=== PATIENT | male | born 1945 | race Caucasian/White ===

== ENCOUNTER → 2016-07-24 | Outpatient (CLI) | payer MEDICARE, OTHER ==
[~2016-07-24] MED LIST: AMLO5TAB4 PO; ARIP5TAB7 PO; BACTDS PO; BETH25TA PO; FINA5TAB4 PO; SERT50TA6 PO
--- NOTE | 2016-07-24 18:21 | RADRPT ---
PROCEDURE: US left lower extremity veins. CLINICAL INDICATION: Left leg pain and swelling. TECHNIQUE: Multiple longitudinal and transverse images of the left lower extremity veins were obta ined with vega scale and color Doppler imaging. The common femoral vein, femoral vein, and popliteal vein were evaluated. 2D grayscale measurements with compression sonography, pulsed Doppler, color D oppler, and pulsed Doppler with augmentation. COMPARISON: No prior studies are available for comparison. FINDINGS: The left common femoral, femoral and popliteal veins are normally compressible throughout. Color fl ow demonstrates normal filling of the vessels. Normal waveforms are visualized and there is normal response to augmentation. IMPRESSION: 1. No evidence of deep vein thrombosis involving the left lower extremity. RPTAT: QQ .Alex Howell MD, MD Date Time Electronically viewed and signed by .Alex Howell MD, on 07/24/2016 18:21 .R/
== END | disposition home or self-care (01) ==
LOC: VAS 16:34
DX: I82.4Z2 Acute embolism and thrombosis of unspecified deep veins of left distal lower extremity (principal)
CPT/HCPCS: 93971

== ENCOUNTER 2016-07-29 20:34 | Inpatient (IN) | payer MEDICARE, OTHER ==
[~2016-07-29] VITALS: Ht 182.9 cm; Wt 88.5 kg
[~2016-07-29 20:34] MED LIST changes: -BACTDS PO
[2016-07-29] MEDS ORDERED: VANCOMYCIN 1 GM (PMX) 250 ML IVPB STA (21:25)
[2016-07-29] MEDS ORDERED: BACTDS PO (21:50)
[2016-07-29 22:07] LABS: ADD SCAN DIFF NO
[2016-07-29 22:13] LABS: BASOPHILS % 0.6 % (0.0-2.0); EOSINOPHILS # 0.2 10^3/ul (0.0-0.5); EOSINOPHILS % 2.5 % (0.0-7.0); HEMOGLOBIN 11.6 g/dl (14.0-18.0); LYMPHOCYTES # 1.6 10^3/ul (0.8-2.9); LYMPHOCYTES % 23.3 % (15.0-51.0); MEAN CORPUSCULAR HEMOGLOBIN 30.5 pg (29.0-33.0); MEAN CORPUSCULAR HGB CONC 31.4 g/dl (32.0-37.0); MEAN CORPUSCULAR VOLUME 97.4 fl (82.0-101.0); MEAN PLATELET VOLUME 9.2 fl (7.4-10.4); MONOCYTE # 0.5 10^3/ul (0.3-0.9); MONOCYTES % 7.2 % (0.0-11.0); NEUTROPHIL # 4.5 10^3/ul (1.6-7.5); NEUTROPHILS % 66.1 % (39.0-77.0); PLATELET COUNT 298 10^3/UL (140-415); RED CELL DISTRIBUTION WIDTH 12.1 % (11.5-14.5); WHITE BLOOD COUNT 6.8 10^3/ul (4.8-10.8)
[2016-07-29 22:27] LABS: ALBUMIN 4.3 g/dl (3.3-4.9); ALBUMIN/GLOBULIN RATIO 0.79; CALCIUM 8.7 mg/dl (8.4-10.2); CREATININE 2.85 mg/dl (0.61-1.24); POTASSIUM 3.9 mmol/L (3.5-5.1); TOTAL PROTEIN 9.7 g/dl (6.1-8.1)
--- NOTE | 2016-07-29 22:33 | ERA ---
ER Documentation Chief Complaint Date/Time DATE: 07/29/16 TIME: 22:27 Chief Complaint old blister wound on L leg requests wound dressing wound culture done+mrsa HPI 70-year-old male with a history of hypertension and Asperger's syndrome presenting with left lower extremity infection. He was seen at an urgent care about 3 days ago and had an I&D of 2 abscesses on his left lower extremity. He was placed on antibiotics but does not know the name. His cultures returned as MRSA. He feels like he has not been getting significantly better on the antibiotics. He denies any associated pain or difficulty walking. No fevers, chills, chest pain, shortness of breath, nausea, vomiting, diarrhea. No focal weakness or numbness ROS All systems reviewed and are negative except as per history of present illness. Medications Home Meds Reported Medications Sulfamethoxazole-Trimethoprim* (Bactrim* DS) 800-160 Mg Tab, 1 TAB PO BID, #20 TAB 07/29/16 Amlodipine Besylate* (Norvasc*) 5 Mg Tablet, 5 MG PO DAILY, TAB 12/01/15 Bethanechol Chloride* (Bethanechol Chloride*) 25 Mg Tablet, 25 MG PO TID, TAB 11/20/15 Finasteride* (Finasteride*) 5 Mg Tablet, 5 MG PO QHS, TAB 11/20/15 Sertraline Hcl* (Sertraline Hcl*) 50 Mg Tablet, 50 MG PO DAILY, #30 TAB 11/20/15 Aripiprazole* (Abilify*) 5 Mg Tab, 5 MG PO DAILY, #30 TAB 11/20/15 Allergies Allergies: Coded Allergies: No Known Allergy (Unverified , 07/29/16) PMhx/Soc History of Surgery: Yes (Prostate resection, tonsillectomy) Anesthesia Reaction: No Hx Neurological Disorder: No Hx Respiratory Disorders: No Hx Cardiac Disorders: Yes (HTN) Hx Psychiatric Problems: Yes (Schizophrenia, depression, anxiety.) Hx Miscellaneous Medical Probl: No Hx Alcohol Use: No Hx Substance Use: No Hx Tobacco Use: No Smoking Status: Never smoker FmHx Family History: No diabetes Physical Exam Vitals Vital Signs Date Time Temp Pulse Resp B/P Pulse Ox O2 Delivery O2 Flow Rate FiO2 07/29/16 20:39 97.7 89 20 174/84 100 Physical Exam Const: Well-appearing, no distress, nontoxic Head: Atraumatic Eyes: Normal Conjunctiva ENT: Normal External Ears, Nose and Mouth. Neck: Full range of motion..~ No meningismus. Resp: Clear to auscultation bilaterally Cardio: Regular rate and rhythm, no murmurs Abd: Soft, non tender, non distended. Normal bowel sounds Skin: No petechiae or rashes Back: No midline or flank tenderness Ext: Left lower extremity with mild erythema extending from the ankle to the mid bo, circumferential. There are medial and lateral areas of drained blister versus abscess. Wound seems superficial. No tenderness to palpation. There is associated mild edema. 1+ distal pulses in bilateral lower extremities Neur: Awake and alert Psych: Normal Mood and Affect Result Diagram: 07/29/16215407/29/162154 Results 24 hrs Laboratory Tests Test 07/29/16 21:55 White Blood Count 6.810^3/ul Red Blood Count 3.8010^6/ul Hemoglobin 11.6g/dl Hematocrit 37.0% Mean Corpuscular Volume 97.4fl Mean Corpuscular Hemoglobin 30.5pg Mean Corpuscular Hemoglobin Concent 31.4g/dl Red Cell Distribution Width 12.1% Platelet Count 19040^3/UL Mean Platelet Volume 9.2fl Neutrophils % 66.1% Lymphocytes % 23.3% Monocytes % 7.2% Eosinophils % 2.5% Basophils % 0.6% Nucleated Red Blood Cells % 0.0/100WBC Neutrophils # 4.510^3/ul Lymphocytes # 1.610^3/ul Monocytes # 0.510^3/ul Eosinophils # 0.210^3/ul Basophils # 0.010^3/ul Nucleated Red Blood Cells # 0.010^3/ul Sodium Level 139mmol/L Potassium Level 3.9mmol/L Chloride Level 106mmol/L Carbon Dioxide Level 21mmol/L Anion Gap 16 Blood Urea Nitrogen 45mg/dl Creatinine 2.85mg/dl Glucose Level 128mg/dl Calcium Level 8.7mg/dl Total Bilirubin 0.0mg/dl Direct Bilirubin 0.00mg/dl Indirect Bilirubin 0.0mg/dl Aspartate Amino Transf (AST/SGOT) 34IU/L Alanine Aminotransferase (ALT/SGPT) 22IU/L Alkaline Phosphatase 156IU/L Total Protein 9.7g/dl Albumin 4.3g/dl Globulin 5.40g/dl Albumin/Globulin Ratio 0.79 Current Medications Medications (Trade) Dose Ordered Sig/Bowen Route PRN Reason Start Time Stop Time Status Last Admin Dose Admin Vancomycin HCl 250 ml @ 125 mls/hr ONCE STAT IVPB 07/29/16 21:25 07/29/16 23:24 DC 07/29/16 21:42 Sodium Chloride (NS) 500 ml @ 500 mls/hr Q1H STAT IV 07/29/16 22:34 07/29/16 23:33 DC 07/29/16 22:43 Ondansetron HCl (Zofran Inj) 4 mg BRIDGE ORDER PRN IV NAUSEA AND/OR VOMITING 07/29/16 23:00 07/30/16 22:59 Acetaminophen (Tylenol Tab) 650 mg ER BRIDGE PRN PO MILD PAIN/FEVER 07/29/16 23:00 07/30/16 22:59 Procedures/MDM Patient is presenting with left lower extremity cellulitis and recent abscesses positive for MRSA. Vitals are stable. There is no evidence of sepsis. I do not suspect DVT. I reviewed his records and he actually had an ultrasound of his left lower extremity on July 24 which showed no DVT. CBC does not show evidence of leukocytosis. BMP shows evidence of acute versus chronic kidney disease. However his last BUN and creatinine in November 2015 were normal. IV fluid bolus was given. Vancomycin IV was started. Patient will be admitted for IV antibiotics as [facility] cannot [facility] with an active MRSA infection. His primary care doctor, Dr. Prado, is aware that the patient is here and actually sent him in. Dr Romero is covering for Dr. Prado. He asked that I admit the patient to Dr. Byers. [facility]. Accepting Care Team: Current data and ongoing care discussed. Time: Time of admission Primary Provider: ANTHONY Byers Consulting: none Outstanding Data: none Departure Diagnosis: Primary Impression: MRSA infection Additional Impressions: Left leg cellulitis Wound of left leg Qualified Code: S81.802A - Wound of left leg, initial encounter Acute renal failure Qualified Code: N17.9 - Acute renal failure, unspecified acute renal failure type Condition: TARIQ Savage MD Jul 29, 2016 22:33
[2016-07-29] MEDS ORDERED: SOD CHLORIDE 0.9% 500 ML IV STA (22:34)
[2016-07-29] MEDS ORDERED: ONDANSETRON 4 MG INJ IV PRN (23:00)
[2016-07-29] MEDS ORDERED: ACETAMINOPHEN 325 MG TAB PO PRN (23:00)
[2016-07-29 23:59] VITALS: TEMP 98
[2016-07-30 00:10] VITALS: BP 142/74; RESP 18
[2016-07-30 00:26] VITALS: Ht 182.9 cm; Wt 88.5 kg
[2016-07-30] MEDS ORDERED: HYDROCODONE/APAP (5/325) TAB PO PRN (01:30)
[2016-07-30] MEDS ORDERED: VANCOMYCIN IV PER PHARMACY XX SCH (01:30)
[2016-07-30] MEDS ORDERED: ACETAMINOPHEN 325 MG TAB PO PRN (01:30)
[2016-07-30] MEDS: ENOXAPARIN 40 MG/0.4 ML SYG SC SCH (08:29)
[2016-07-30] MEDS: ARIPIPRAZOLE 5 MG TAB PO SCH (08:29)
[2016-07-30] MEDS: BETHANECHOL 25 MG TAB PO SCH ×2 (08:29→11:51)
[2016-07-30] MEDS: SERTRALINE 50 MG TAB PO SCH (08:32)
[2016-07-30] MEDS: AMLODIPINE 5 MG TAB PO SCH (08:32)
[2016-07-30] MEDS ORDERED: CEFEPIME 1GM/50 ML (PMX) 50 ML IVPB SCH (09:00)
--- NOTE | 2016-07-30 10:34 | CONS ---
Date/Time of Note Date/Time of Note DATE: 07/30/16 TIME: 10:20 Assessment/Plan Assessment/Plan Chief Complaint/Hosp Course 1) LLE cellulitis with open sores this is mild and doubt there is a deeper infection but will check ESR and CRP anyway re-culture the site get nasal cx for MRSA continue with just Vanco at this time unable to add rifampin due to pt being on abilify (it will lower the dose of abilify) likely pt will be able to be treated with oral doxycycline will continue iv vanco till improvement is noted. 2) Increase in creatinine this is new since 2015, due to bactrim? will check u/a and urine cx repeat labs in a.m. and consider renal u/s 3) increase in globulins this is not new but it is higher will order serum protein electropheresis 4) HTN Problems: Consultation Date/Type/Reason Admit Date/Time Jul 29, 2016 at 22:52 Date of Consultation: Jul 30, 2016 Type of Consultation: ID Hx of Present Illness 70yo WM admitted due to failure of outpt oral therapy for LLE cellulitis pt has a prior hx of LE cellulitis 2 weeks ago he developed some large clear blisters to L calf area These late opened up and he had them debrided and cx were done that showed MRSA he was started on oral bactrim 3 days ago and he states no improvement. He denies pain to leg He states the redness was there prior to the blisters and has been there a long time No F, C, NS. No SOB, cough, MATUTE, CP, abd pain, dysuria No known injury to the leg Past Medical History HTN, asperger's syndrome Past Surgical History bladder reconstruction Social History Smoking Status: Never smoker Exam/Review of Systems Vital Signs Vitals Vital Signs Date Time Temp Pulse Resp B/P Pulse Ox O2 Delivery O2 Flow Rate FiO2 07/30/16 00:10 97.9 71 18 142/74 100 Intake and Output 07/29/16 07/29/16 07/30/16 15:00 23:00 07:00 Intake Total 700 ml Balance 700 ml Exam Constitutional: alert, oriented Head: normocephalic Eyes: nl conjunctiva, nl sclera ENMT: mucosa pink and moist Neck: supple Respiratory: clear to auscultation Cardiovascular: regular rate and rhythm Gastrointestinal: non-tender, soft Extremities: other (L calf has several flat open sores with surrounding mild erythema, minimal increase in heat, no pain, minimal swelling) Results Result Diagram: 07/29/16215407/29/162154 Results 24 hrs Laboratory Tests Test 07/29/16 21:55 White Blood Count 6.8 # Red Blood Count 3.80 L Hemoglobin 11.6 L Hematocrit 37.0 L Mean Corpuscular Volume 97.4 Mean Corpuscular Hemoglobin 30.5 Mean Corpuscular Hemoglobin Concent 31.4 L Red Cell Distribution Width 12.1 Platelet Count 298 Mean Platelet Volume 9.2 # Neutrophils % 66.1 Lymphocytes % 23.3 Monocytes % 7.2 Eosinophils % 2.5 Basophils % 0.6 Nucleated Red Blood Cells % 0.0 Neutrophils # 4.5 Lymphocytes # 1.6 Monocytes # 0.5 Eosinophils # 0.2 Basophils # 0.0 Nucleated Red Blood Cells # 0.0 Sodium Level 139 Potassium Level 3.9 Chloride Level 106 Carbon Dioxide Level 21 Anion Gap 16 Blood Urea Nitrogen 45 H Creatinine 2.85 H Glucose Level 128 Calcium Level 8.7 Total Bilirubin 0.0 L Direct Bilirubin 0.00 Indirect Bilirubin 0.0 Aspartate Amino Transf (AST/SGOT) 34 Alanine Aminotransferase (ALT/SGPT) 22 Alkaline Phosphatase 156 H Total Protein 9.7 H Albumin 4.3 Globulin 5.40 H Albumin/Globulin Ratio 0.79 Medications Medications Current Medications Amlodipine Besylate (Norvasc) 5 mg DAILY PO Last administered on 07/30/16 08: 32; Admin Dose 5 MG; Start 07/30/16 at 09:00 Aripiprazole (Abilify) 5 mg DAILY PO Last administered on 07/30/16 08:29; Admin Dose 5 MG; Start 07/30/16 at 09:00 Bethanechol Chloride (Urecholine) 25 mg TID PO Last administered on 07/30/16 08:29; Admin Dose 25 MG; Start 07/30/16 at 09:00 Finasteride (Proscar) 5 mg QHS PO ; Start 07/30/16 at 21:00 Sertraline HCl 50 mg 50 mg DAILY PO Last administered on 07/30/16 08:32; Admin Dose 50 MG; Start 07/30/16 at 09:00 Cefepime HCl (Maxipime 1gm/50 ml (Pmx)) 50 ml @ 100 mls/hr Q12 IVPB Last administered on 07/30/16 09:38; Admin Dose 100 MLS/HR; Start 07/30/16 at 09:00 Acetaminophen (Tylenol Tab) 650 mg Q6H PRN PO PAIN AND OR ELEVATED TEMP; Start 07/30/16 at 01:30 Acetaminophen/ Hydrocodone Bitart ([place] (5/325)) 1 tab Q4H PRN PO PAIN; Start 07/30/16 at 01:30 Enoxaparin Sodium 40 mg 40 mg DAILY SC Last administered on 07/30/16 08:29; Admin Dose 40 MG; Start 07/30/16 at 09:00 Vancomycin HCl/ Sodium Chloride (Vancocin/NS) 250 ml @ 83.333 mls/ hr Q24H IVPB ; Start 07/30/16 at 16:00 IRINA DE LA ROSA MD Jul 30, 2016 10:31
[2016-07-30 12:37] LABS: ADD UMIC YES; URINE COLOR LT YELLOW (YELLOW)
[2016-07-30 12:39] LABS: URINE BILIRUBIN (Dip) NEGATIVE (NEGATIVE); URINE BLOOD (Dip) 1+ (NEGATIVE); URINE GLUCOSE (Dip) NEGATIVE (NEGATIVE); URINE KETONES (Dip) NEGATIVE (NEGATIVE); URINE LEUKOCYTE ESTERASE (Dip) 1+ (NEGATIVE); URINE NITRITE (Dip) NEGATIVE (NEGATIVE); URINE TOTAL PROTEIN (Dip) TRACE (NEGATIVE); URINE UROBILINOGEN (Dip) 0.2 E.U./dL (0.1-1.0)
[2016-07-30 13:13] LABS: BACTERIA,URINE FEW
--- NOTE | 2016-07-30 14:16 | HP ---
DATE OF ADMISSION: 07/29/2016 ADMITTING DIAGNOSIS: Cellulitis with MRSA, bilateral lower extremities. HISTORY OF PRESENT ILLNESS: The patient is a 70-year-old male with Asperger's syndrome, d epression, hypertension and renal insufficiency, who presented to the emergency room with worsening swelling in the bilateral lower extremities. The patient had seen my partner, Dr. Penn, last we ek while I was on vacation for cellulitis and the patient was treated with Bactrim. The patient heather t back to urgent care due to slight worsening and cultures revealed MRSA. The patient has been on B actrim throughout this time, but no real improvement in his overall symptoms. REVIEW OF SYSTEMS: Unremarkable. No fevers, chills or night sweats. No significant pain. No shor tness of breath or chest pain. PAST MEDICAL HISTORY: Asperger's syndrome, major depression, hypertension, chronic renal insufficie ncy diagnosed in the past 6 months. PAST SURGICAL HISTORY: Bladder reconstruction. FAMILY HISTORY: Noncontributory. ALLERGIES: NONE. SOCIAL HISTORY: The patient resides in a board and care. No tobacco, no alcohol use. MEDICATIONS: 1. Abilify 5 mg daily. 2. Amlodipine 5 mg daily. 3. Finasteride 5 mg daily. 4. Bethanechol 25 mg t.i.d. 5. Sertraline 50 mg daily. 6. The patient was on Bactrim. PHYSICAL EXAMINATION: VITAL SIGNS: Temperature 97.9, pulse 71, respirations 18, blood pressure 142/74, oxygen saturation is 100% on room air. GENERAL: Well-developed, well-nourished male, in no acute distress. HEENT: EOMI, PERRLA. Oropharynx with poor dentition, otherwise clear. NECK: No jugular venous distention. 2+ carotid upstroke, without bruits. No lymphadenopathy, no t hyromegaly. LUNGS: Clear to auscultation bilaterally. HEART: Regular rate and rhythm. Normal S1, S2. No murmurs, gallops or rubs noted. ABDOMEN: Soft, nontender, nondistended. Normal active bowel sounds. No hepatosplenomegaly, no mas ses noted. GENITOURINARY EXAM: Normal male. No masses, no hernia. RECTAL: Deferred. EXTREMITIES: Trace edema, bilateral lower extremities. There are stasis changes bilaterally, with mild erythema of the right lower extremity. Left lower extremity with 2 shallow ulcers with surroun ding erythema. No drainage. Pulses are 1 to 2+ bilateral dorsal pedis and posterior tibialis and p opliteal. NEUROLOGIC: Nonfocal. LABORATORY: White blood cell count 6.8, hemoglobin 11.2, hematocrit 37.0, platelets 298, creatinine 2.85, BUN of 45, alkaline phosphatase 156, albumin 4.3, globulin 5.4, AST 34, ALT 22, total bilirub in 0.0. Calcium 8.7, glucose 128, carbon dioxide 21, chloride 106, potassium 3.9, sodium 139. Ther e was an ultrasound done on the left lower extremity on 07/24/2016 that was negative for DVT. ASSESSMENT AND PLAN: 1. Cellulitis with Methicillin-resistant Staphylococcus aureus. Appreciate Dr. Sue's consultation and input into this case. The patient was a board and care resident, but with MRSA he cannot be a resident there. Patient will need to be transferred to a nursing home facility after stabilizati on of the cellulitis here on antibiotics. Will continue the current medications with vancomycin and wound care. Will repeat culture, as well as checking nasal swab for MRSA and keep the patient in i solation. 2. Hypertension. Will continue with the patient's medications and diet. 3. Depression. Will continue with the patient's medications. 4. Renal insufficiency. This is new in the last 6 months, and had no prior for comparison. Patien t with slight worsening, and in part may be related to the Bactrim. Will hold Bactrim. Will give i ntravenous bolus and some mild IV fluids, as well as check a renal ultrasound to further evaluation. Dictated By: TONI TAYLOR MD SR/NTS Conf#: [id number] DID#: [id number]
[2016-07-30] MEDS: VANCOMYCIN 1.25 GM in SOD CHLORIDE 0.9% 250 ML IVPB SCH (15:54)
[2016-07-30] MEDS ORDERED: VANCOMYCIN 1.25 GM in SOD CHLORIDE 0.9% 250 ML IVPB SCH (16:00)
--- NOTE | 2016-07-30 16:24 | RADRPT ---
PROCEDURE: Renal US. CLINICAL INDICATION: Acute kidney injury. TECHNIQUE: Multiple sonographic images of the kidneys and urinary bladder were obtained. The imag es were reviewed on a PACS workstation. COMPARISON: No prior studies are available for comparison. FINDINGS: The right kidney measures 10.6 cm. The left kidney measures 12.1 cm. There is no renal mass. There is moderate right hydronephrosis and moderate to severe left hydronephrosis. There is no renal calculus. Renal parenchymal thickness is normal bilaterally. Echogenicity is normal bilaterally. The perirenal regions are normal with no fluid collection or mass. The urinary bladder is distended with a volume of 3 liters. There is no bladder mass or calculus. IMPRESSION: 1. Moderate right hydronephrosis and moderate to severe left hydronephrosis. 2. Markedly distended urinary bladder with a volume of 3 meters. Call report: A call report of the findings was made to Dr. Prado on 07/30/2016 at 1620 hours. RPTAT: QQ .Alex Howell MD, Date Time Electronically viewed and signed by .Alex Howell MD, on 07/30/2016 16:23 .R/
[2016-07-30 20:09] VITALS: BP 119/57; RESP 16
[2016-07-30] MEDS: FINASTERIDE 5 MG TAB PO SCH (20:10)
[2016-07-31 05:31] LABS: ADD SCAN DIFF NO
[2016-07-31 05:52] LABS: BASOPHILS % 0.4 % (0.0-2.0); EOSINOPHILS # 0.3 10^3/ul (0.0-0.5); EOSINOPHILS % 4.5 % (0.0-7.0); HEMATOCRIT 31.3 % (42.0-52.0); HEMOGLOBIN 9.9 g/dl (14.0-18.0); LYMPHOCYTES # 1.7 10^3/ul (0.8-2.9); LYMPHOCYTES % 23.4 % (15.0-51.0); MEAN CORPUSCULAR HEMOGLOBIN 30.9 pg (29.0-33.0); MEAN CORPUSCULAR HGB CONC 31.6 g/dl (32.0-37.0); MEAN CORPUSCULAR VOLUME 97.8 fl (82.0-101.0); MEAN PLATELET VOLUME 9.3 fl (7.4-10.4); MONOCYTE # 0.6 10^3/ul (0.3-0.9); MONOCYTES % 8.3 % (0.0-11.0); NEUTROPHIL # 4.5 10^3/ul (1.6-7.5); NEUTROPHILS % 63.1 % (39.0-77.0); PLATELET COUNT 257 10^3/UL (140-415); RED CELL DISTRIBUTION WIDTH 12.3 % (11.5-14.5); WHITE BLOOD COUNT 7.2 10^3/ul (4.8-10.8)
[2016-07-31 05:53] LABS: POTASSIUM 4.3 mmol/L (3.5-5.1)
[2016-07-31 05:55] LABS: CREATININE 2.76 mg/dl (0.61-1.24)
[2016-07-31 05:56] LABS: CALCIUM 8.6 mg/dl (8.4-10.2)
[2016-07-31 05:59] LABS: C-REACTIVE PROTEIN 0.7 mg/dl (0.0-0.9)
--- NOTE | 2016-07-31 07:01 | CONS ---
Date/Time of Note Date/Time of Note DATE: 07/31/16 TIME: 06:57 Assessment/Plan Assessment/Plan Chief Complaint/Hosp Course 1) LLE cellulitis with open sores this is mild and doubt there is a deeper infection but will check ESR and CRP anyway re-culture the site get nasal cx for MRSA continue with just Vanco at this time unable to add rifampin due to pt being on abilify (it will lower the dose of abilify) likely pt will be able to be treated with oral doxycycline will continue iv vanco till improvement is noted. 07/31 - doing well, continue with IV vanco wound cx is NGTD, nasal swab is also NGTD CRP is low, so doubt any deeper infection when pt is ready for d/c can change to po clinda or doxy 2) Increase in creatinine this is new since 2015, due to bactrim? will check u/a and urine cx repeat labs in a.m. and consider renal u/s 07/31 - this is not new u/a has mild-mod pyuria but urine cx is NGTD 3) increase in globulins this is not new but it is higher will order serum protein electropheresis 4) HTN Problems: Consultation Date/Type/Reason Admit Date/Time Jul 29, 2016 at 22:52 Initial Consult Date 07/30/16 Type of Consultation: ID 24 HR Interval Summary Free Text/Dictation pt is doing well no N, V, D, SOB no pain to L leg Exam/Review of Systems Vital Signs Vitals Vital Signs Date Time Temp Pulse Resp B/P Pulse Ox O2 Delivery O2 Flow Rate FiO2 07/30/16 20:09 98.8 79 16 119/57 97 Intake and Output 07/30/16 07/30/16 07/31/16 15:00 23:00 07:00 Intake Total 50 ml 1390 ml 520 ml Output Total 2500 ml 800 ml Balance 50 ml -1110 ml -280 ml Exam Constitutional: alert, oriented Head: normocephalic Eyes: nl sclera ENMT: mucosa pink and moist Respiratory: clear to auscultation Cardiovascular: regular rate and rhythm Gastrointestinal: non-tender, soft Extremities: other (L leg is partly bandaged, overall heat is less, minimal swelling and no pain) Results Result Diagram: 07/31/1652307/31/16523 Results 24 hrs Laboratory Tests Test 07/30/16 12:10 07/30/16 14:38 07/31/16 05:24 Urine Color LT YELLOW Urine Clarity CLEAR Urine pH 5.0 Urine Specific [place] 1.025 Urine Ketones NEGATIVE Urine Nitrite NEGATIVE Urine Bilirubin NEGATIVE Urine Urobilinogen 0.2 E.U./dL Urine Leukocyte Esterase 1+ H Urine Microscopic RBC 5-10 Urine Microscopic WBC 10-25 Urine Amorphous Urates MODERATE Urine Bacteria FEW Urine Hemoglobin 1+ H Urine Glucose NEGATIVE Urine Total Protein TRACE Lab Scanned Report REFERENCE LAB White Blood Count 7.2 Red Blood Count 3.20 L Hemoglobin 9.9 L Hematocrit 31.3 L Mean Corpuscular Volume 97.8 Mean Corpuscular Hemoglobin 30.9 Mean Corpuscular Hemoglobin Concent 31.6 L Red Cell Distribution Width 12.3 Platelet Count 257 Mean Platelet Volume 9.3 Neutrophils % 63.1 Lymphocytes % 23.4 Monocytes % 8.3 Eosinophils % 4.5 Basophils % 0.4 Nucleated Red Blood Cells % 0.0 Neutrophils # 4.5 Lymphocytes # 1.7 Monocytes # 0.6 Eosinophils # 0.3 Basophils # 0.0 Nucleated Red Blood Cells # 0.0 Sodium Level 140 Potassium Level 4.3 Chloride Level 110 Carbon Dioxide Level 21 Anion Gap 13 Blood Urea Nitrogen 43 H Creatinine 2.76 H Glucose Level 93 Calcium Level 8.6 C-Reactive Protein 0.7 Medications Medications Current Medications Amlodipine Besylate (Norvasc) 5 mg DAILY PO Last administered on 07/30/16 08: 32; Admin Dose 5 MG; Start 07/30/16 at 09:00 Aripiprazole (Abilify) 5 mg DAILY PO Last administered on 07/30/16 08:29; Admin Dose 5 MG; Start 07/30/16 at 09:00 Finasteride (Proscar) 5 mg QHS PO Last administered on 07/30/16 20:10; Admin Dose 5 MG; Start 07/30/16 at 21:00 Sertraline HCl (Zoloft) 50 mg DAILY PO Last administered on 07/30/16 08:32; Admin Dose 50 MG; Start 07/30/16 at 09:00 Acetaminophen (Tylenol Tab) 650 mg Q6H PRN PO PAIN AND OR ELEVATED TEMP; Start 07/30/16 at 01:30 Acetaminophen/ Hydrocodone Bitart ([place] (5/325)) 1 tab Q4H PRN PO PAIN; Start 07/30/16 at 01:30 Enoxaparin Sodium 40 mg 40 mg DAILY SC Last administered on 07/30/16 08:29; Admin Dose 40 MG; Start 07/30/16 at 09:00 Vancomycin HCl/ Sodium Chloride (Vancocin/NS) 250 ml @ 83.333 mls/ hr Q36H IVPB Last administered on 07/30/16 15:54; Admin Dose 83.333 MLS/HR; Start at 16:00 IRINA DE LA ROSA MD Jul 31, 2016 07:01
[2016-07-31 07:57] VITALS: BP 105/56; RESP 16
[2016-07-31] MEDS: AMLODIPINE 5 MG TAB PO SCH (08:16)
[2016-07-31] MEDS: SERTRALINE 50 MG TAB PO SCH (08:17)
[2016-07-31] MEDS: ARIPIPRAZOLE 5 MG TAB PO SCH (08:17)
[2016-07-31] MEDS: ENOXAPARIN 40 MG/0.4 ML SYG SC SCH (08:18)
--- NOTE | 2016-07-31 08:58 | PN ---
DATE: 07/31/2016 SUBJECTIVE: The patient is feeling a little better. Less leg pain. Otherwise no complaints. OBJECTIVE: VITAL SIGNS: Temperature 97.8, pulse 71, respirations 16, blood pressure 105/56, oxygen saturation 100% on room air. GENERAL: Well-developed, well-nourished male, in no acute distress. CHEST: Clear to auscultation. HEART: Regular rate and rhythm. ABDOMEN: Soft, nontender, nondistended. GENITOURINARY EXAM: Nava in place. EXTREMITIES: Bilateral lower extremities with stasis changes. Minimal erythema. Minimal drainage from ulcers in left lower extremity. NEUROLOGIC: Nonfocal. LABORATORY: Sodium 140, potassium 4.3, chloride 110, bicarbonate 21, BUN 43, creatinine 2.76, gluco se 93. C-reactive protein 0.7. Hematocrit is 31.3, hemoglobin 9.9, white blood cell count 7.2, plat elet count 257. Renal ultrasound shows marked right nephrosis and moderate to severe left nephrosis. Markedly diste nded urinary bladder, with 3 liters of urine. Renal parenchyma thickness was normal bilaterally. N o renal calculus. ASSESSMENT AND PLAN: 1. Methicillin-resistant Staphylococcus aureus cellulitis of the lower extremities. This remains s table. The patient is on vancomycin. Will eventually need placement for further clearance of his i nfection prior to returning to his board and care. 2. Acute on chronic renal failure. The patient with renal ultrasound showing urinary retention wit h 3 liters of urine. Patient with mildly improved renal function after Nava was placed. 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 Will have Dr. Martinez from urology evaluate the patient and assist with workup and treatment. 3. Asperger's/depression. Will continue with the patient's Abilify and Sertraline. 4. Anemia. This is new. Will check iron studies and repeat in the a.m. 5. Hypertension. Patient with low blood pressure. Will continue with blood pressure medications a nd diet and hold if needed. Dictated By: TONI TAYLOR MD SR/NTS Conf#: [id number] DID#: [id number]
--- NOTE | 2016-07-31 11:15 | CONS ---
DATE OF ADMISSION: 07/29/2016 DATE OF CONSULTATION: 07/31/2016 REQUESTING PHYSICIAN: Dr. Prado Dear Miki, Thank you for asking me to see this patient in urological consultation. HISTORY OF PRESENT ILLNESS: This patient is a 70-year-old male who was admitted to the [facility] of cellulitis of the lower extremities and MRSA in that cellulitis. The patient underwent a re nal ultrasound yesterday, and that showed a bilateral hydronephrosis and bladder that is distended w ith 3 liters of urine; therefore, a Nava catheter was put in, and a urological consultation was req uested. The patient states that he has been incontinent of urine for the past 3 years. He does use diapers at night, and during the day, he voids and his stream is slow. He denies any dysuria. He did undergo, from what it appears to be, a transurethral resection of prostate because it was pressi ng on the bladder about 2 years ago, but I do not think that was helpful because he was incontinent before the surgery and after the surgery, and that is most likely because of overflow incontinence. He denies that the prostate had any cancer in it, but he did not have a transrectal ultrasound or u ltrasound-guided biopsy of the prostate. He had a transurethral resection. Probably they did that to attempt to see if he does urinate, and he did not have a good response because most likely the bl adder is more atonic than it was a matter of obstruction. The patient also has been on bethanechol which is urecholine 25 mg 3 times a day, and that is because the atonic bladder. He also has been o n finasteride 5 mg daily and also Sertraline 50 mg daily, Abilify 5 mg daily. All these could also relax the bladder. The sertraline and the Abilify; they could relax the bladder and cause also prob flakito with retention. The patient does have a history of hypertension and has been on amlodipine as w ell. There is no history of gross hematuria. PAST MEDICAL HISTORY: Includes a history of Asperger syndrome, major depression, hypertension, and chronic kidney disease diagnosed in the past 6 months, and that is probably because of the urinary r etention. SOCIAL HISTORY: The patient resides at the [facility]. He does not smoke, does not dr ink any alcohol. ALLERGIES: HE HAS NO KNOWN DRUG ALLERGIES. REVIEW OF SYSTEMS: Negative except for what is mentioned above. MEDICATIONS: Presently he is on include 1. Finasteride 2. Vancomycin. 3. Amlodipine. 4. Abilify. 5. Sertraline. 6. Lovenox. 7. Tylenol. 8. [place] p.r.n. PHYSICAL EXAMINATION: GENERAL: Reveals an elderly male, a 70-year-old. He weighs 88.5 kilograms. He is 72 inches tall. VITAL SIGNS: Temperature is 97.8, pulse is 71, respirations 16, blood pressure 105/56. HEAD AND NECK: Unremarkable. There is no cervical adenopathy. The lungs are not wheezing, and he is breathing comfortably. ABDOMEN: Soft. There is no abdominal mass palpable. GENITALIA: External genitalia are normal. The Nava catheter that he has is draining clear urine. RECTAL: Revealed hard prostate. The prostate is not large, but it is hard. EXTREMITIES: He does have cellulitis of the lower extremities, and the extremities are wrapped with Kerlix dressing. LABORATORY DATA: CBC shows a white count of 7.2, hemoglobin 9.9, hematocrit 31.3, platelet count 25 7,000. The BUN on admission was 45, today is 43, creatinine 2.85 on admission, it is 2.76 now. Joanie ctrolytes: Sodium 140, potassium 4.3, chloride 110, CO2 is 21. IMPRESSION: Urinary retention and bilateral hydronephrosis with hard prostate, rule out prostate ca ncer. 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 PLAN: For now is to do a PSA on the blood that was drawn on admission. Also, keep the Nava cathet er in, monitor his renal function, and depending on the result of the PSA, we may decide further act ions. The patient eventually may end up needing to learn how to do self-intermittent catheterizatio n to preserve his kidney function if he can do that. If not, then he will need to have a Nava cath eter if he fails to empty his bladder well as most likely is the case. I will follow his urological problem with you. I do thank you for allowing me to help in his care. Dictated By: MAXWELL PEREZ/MEGAN Conf#: [id number] [facility]#: [id number]
[2016-07-31 17:34] VITALS: BP 123/60; PULSE 69
[2016-07-31 19:50] VITALS: BP 106/58; PULSE 71; RESP 18
[2016-07-31 20:15] VITALS: BP 106/58; RESP 18
[2016-07-31] MEDS: FINASTERIDE 5 MG TAB PO SCH (20:53)
[2016-08-01 01:58] LABS: PROTEIN, TOTAL 7.3 g/dL (6.1-8.1)
[2016-08-01] MEDS: VANCOMYCIN 1.25 GM in SOD CHLORIDE 0.9% 250 ML IVPB SCH (03:27)
[2016-08-01 05:40] LABS: ADD SCAN DIFF NO
[2016-08-01 05:45] LABS: BASOPHILS % 0.5 % (0.0-2.0); EOSINOPHILS # 0.3 10^3/ul (0.0-0.5); HEMATOCRIT 31.6 % (42.0-52.0); LYMPHOCYTES # 1.7 10^3/ul (0.8-2.9); LYMPHOCYTES % 27.4 % (15.0-51.0); MEAN CORPUSCULAR HEMOGLOBIN 31.1 pg (29.0-33.0); MEAN CORPUSCULAR HGB CONC 31.6 g/dl (32.0-37.0); MEAN CORPUSCULAR VOLUME 98.1 fl (82.0-101.0); MEAN PLATELET VOLUME 9.6 fl (7.4-10.4); MONOCYTE # 0.6 10^3/ul (0.3-0.9); NEUTROPHIL # 3.7 10^3/ul (1.6-7.5); NEUTROPHILS % 57.9 % (39.0-77.0); PLATELET COUNT 235 10^3/UL (140-415); RED BLOOD COUNT 3.22 10^6/ul (4.70-6.10); RED CELL DISTRIBUTION WIDTH 12.3 % (11.5-14.5); WHITE BLOOD COUNT 6.4 10^3/ul (4.8-10.8)
[2016-08-01 06:10] LABS: ALBUMIN 3.2 g/dl (3.3-4.9); POTASSIUM 4.3 mmol/L (3.5-5.1)
[2016-08-01 06:12] LABS: CREATININE 2.83 mg/dl (0.61-1.24)
[2016-08-01 06:13] LABS: ALBUMIN/GLOBULIN RATIO 0.69; TOTAL PROTEIN 7.8 g/dl (6.1-8.1)
[2016-08-01 06:14] LABS: CALCIUM 8.7 mg/dl (8.4-10.2)
[2016-08-01 07:31] LABS: TOTAL IRON BINDING CAPACITY 265 ug/dl (241-421)
[2016-08-01 07:55] LABS: IRON 48 ug/dl (35-150)
[2016-08-01 08:20] VITALS: BP 113/62; RESP 21
[2016-08-01] MEDS: ENOXAPARIN 40 MG/0.4 ML SYG SC SCH (09:02)
[2016-08-01] MEDS: ARIPIPRAZOLE 5 MG TAB PO SCH (09:02)
[2016-08-01] MEDS: AMLODIPINE 5 MG TAB PO SCH (09:03)
[2016-08-01] MEDS: SERTRALINE 50 MG TAB PO SCH (09:03)
--- NOTE | 2016-08-01 10:20 | PN ---
DATE: 08/01/2016 SUBJECTIVE: Patient stated that he is comfortable and has no pain. No dysuria. No fever, no nause a, no vomiting. OBJECTIVE: The patient has had urinary retention and had about 3 liters of urine inside his bladder, with bilateral hydronephrosis and renal failure. The Nava catheter is draining well. His renal f unction has not improved, even with the catheter drainage. His creatinine was 2.76 and today it is 2.83, and this is a chronic problem that he has since he has had urinary incontinence at night for t he past 3 years. OBJECTIVE FINDINGS: VITAL SIGNS: Show a temperature of 97.5, pulse 65, respirations 21, blood pressure 113/62. ABDOMEN: Soft. There is no abdominal mass palpable. GENITALIA: The external genitalia are normal. A Nava catheter is draining clear urine. LABORATORY: CBC shows a white count of 6.4, hemoglobin 10.0, hematocrit 31.6. BUN 40, creatinine 2 .83. Sodium 140, potassium 4.3, chloride 108, CO2 23. Urine culture, no growth in 24 hours. RECOMMENDATION: Keep the Nava catheter in for now. I discussed with the patient the options of eit her having an indwelling Nava catheter or maybe teaching him how to do in and out catheterization, that if he is capable of learning it and doing it. Also the patient is on medication that could aff ect his bladder function, that is the Sertraline and the Abilify, but these may not be the only fact ors. This patient has had probably an atonic bladder for a long time and therefore the bladder may not have the ability to squeeze the urine out. Therefore, he may end up needing either to do self-c atheterization or to use an indwelling Nava catheter. We shall wait and first treat any infection and see if his renal function does improve. Dictated By: MAXWELL PEREZ/MEGAN Conf#: [id number] DID#: [id number]
[2016-08-01 15:16] LABS: ALBUMIN 3.3 g/dL (3.8-4.8)
[2016-08-01] MEDS ORDERED: EPOETIN 10000 UNITS/1 ML INJ (ESRD) SC ONE (17:00)
[2016-08-01 20:23] VITALS: BP 108/57; RESP 18
[2016-08-01] MEDS: FERROUS SULFATE (SR) 142 MG TAB PO SCH (22:38)
[2016-08-01] MEDS: FINASTERIDE 5 MG TAB PO SCH (22:38)
--- NOTE | 2016-08-02 05:21 | PN ---
DATE: 08/01/2016 SUBJECTIVE: The patient is awake, alert, has flat affect. Denies any current pain or discomfort. OBJECTIVE: VITAL SIGNS: Temperature 98.0, blood pressure 108/57, pulse of 72, respiration rate 18, O2 saturation 98% on room air. HEENT: Pupils equally round, reactive to light. Oropharynx clear. CHEST: Lungs are clear to auscultation. CARDIAC: Regular rate and rhythm, normal S1, S2. ABDOMEN: Active bowel sounds, soft, nondistended, nontender. EXTREMITIES: No clubbing, cyanosis, or edema. Left leg dressing clean and dry. Nava catheter draining clear yellow urine. LABORATORY DATA: WBC 6.4, hemoglobin 10.0, hematocrit 31.6, platelet count 235, 000. ESR 73. Sodium 140, potassium 4.3, chloride 108, carbon dioxide 23, BUN 40, creatinine 2.83, glucose 92, calcium 8.7, iron 48, TIBC 265, percent saturation is 18%. Liver enzymes are within normal limits except for mild decrease albumin of 3.2 and increased globulin of 4.6. The prostate specific antigen is 0.5. The SPEP is notable for elevated gamma globulin that is consistent with an inflammatory pattern. Urine culture shows no growth after 48 hours. Left leg wound culture is showing Staphylococcus species, scant growth on the preliminary culture. ASSESSMENT AND PLAN: 1. Left lower extremity cellulitis. The patient is currently on vancomycin; await final wound culture and sensitivity. 2. Acute renal failure may be due to the chronic urinary retention caused by atonic bladder. Appreciate urology input and continue treatment as suggested. 3. Anemia. decreased iron and decreased TIBC suggestive of iron deficiency as well as chronic disease. 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 4. Other problems. Continue current medications. Dictated By: DAMARIS QUINTANA MD DP/NTS Conf#: [id number] DID#: [id number] CC: KAROLINA GIRALDO MD;*EndCC* MTDD
--- NOTE | 2016-08-02 06:46 | CONS ---
Date/Time of Note Date/Time of Note DATE: 08/02/16 TIME: 06:41 Assessment/Plan Assessment/Plan Chief Complaint/Hosp Course 1) LLE cellulitis with open sores this is mild and doubt there is a deeper infection but will check ESR and CRP anyway re-culture the site get nasal cx for MRSA continue with just Vanco at this time unable to add rifampin due to pt being on abilify (it will lower the dose of abilify) likely pt will be able to be treated with oral doxycycline will continue iv vanco till improvement is noted. 07/31 - doing well, continue with IV vanco wound cx is NGTD, nasal swab is also NGTD CRP is low, so doubt any deeper infection when pt is ready for d/c can change to po clinda or doxy 08/02 - doing well d/c IV vanco and start po doxycycline nasal swab for neg for MRSA wound cx has only CoNS now 2) Increase in creatinine this is new since 2015, due to bactrim? will check u/a and urine cx repeat labs in a.m. and consider renal u/s 07/31 - this is not new u/a has mild-mod pyuria but urine cx is NGTD 3) increase in globulins this is not new but it is higher will order serum protein electropheresis 08/02 - SPEP only show inflammatory response no spike 4) HTN Problems: Consultation Date/Type/Reason Admit Date/Time Jul 29, 2016 at 22:52 Initial Consult Date 07/30/16 Type of Consultation: ID 24 HR Interval Summary Free Text/Dictation doing well no c/o pain to leg no N, V, D appetite is good Exam/Review of Systems Vital Signs Vitals Vital Signs Date Time Temp Pulse Resp B/P Pulse Ox O2 Delivery O2 Flow Rate FiO2 08/01/16 20:23 98.0 72 18 108/57 98 07/31/16 19:50 Room Air Intake and Output 08/01/16 08/01/16 08/02/16 14:59 22:59 06:59 Intake Total 1000 ml 300 ml Output Total 1300 ml 900 ml Balance -300 ml -600 ml Exam Constitutional: alert, oriented Head: normocephalic Eyes: nl sclera ENMT: mucosa pink and moist Respiratory: clear to auscultation Cardiovascular: regular rate and rhythm Gastrointestinal: non-tender, soft Extremities: other (L calf, redness is practically gone, stage II ulcers noted without surrounding erythema, no pain) Results Result Diagram: 08/01/1643608/01/16436 Medications Medications Current Medications Amlodipine Besylate (Norvasc) 5 mg DAILY PO Last administered on 08/01/16 09: 03; Admin Dose 5 MG; Start 07/30/16 at 09:00 Aripiprazole (Abilify) 5 mg DAILY PO Last administered on 08/01/16 09:02; Admin Dose 5 MG; Start 07/30/16 at 09:00 Finasteride (Proscar) 5 mg QHS PO Last administered on 08/01/16 22:38; Admin Dose 5 MG; Start 07/30/16 at 21:00 Sertraline HCl (Zoloft) 50 mg DAILY PO Last administered on 08/01/16 09:03; Admin Dose 50 MG; Start 07/30/16 at 09:00 Acetaminophen (Tylenol Tab) 650 mg Q6H PRN PO PAIN AND OR ELEVATED TEMP; Start 07/30/16 at 01:30 Acetaminophen/ Hydrocodone Bitart ([place] (5/325)) 1 tab Q4H PRN PO PAIN; Start 07/30/16 at 01:30 Enoxaparin Sodium 40 mg 40 mg DAILY SC Last administered on 08/01/16 09:02; Admin Dose 40 MG; Start 07/30/16 at 09:00 Vancomycin HCl/ Sodium Chloride (Vancocin/NS) 250 ml @ 83.333 mls/ hr Q36H IVPB Last administered on 08/01/16 03:27; Admin Dose 83.333 MLS/HR; Start at 16:00 Miscellaneous Information (*Rx Drug Level Order Reminder*) VANCOMYCIN TROUGH AT 1500 ONCE ONCE XX ; Start 08/02/16 at 15:00; Stop 08/02/16 at 15:01 Ferrous Sulfate (Slow Fe) 142 mg BID PO Last administered on 08/01/16 22:38; Admin Dose 142 MG; Start 08/01/16 at 21:00 IRINA DE LA ROSA MD Aug 02, 2016 06:46
[2016-08-02 07:22] VITALS: BP 114/69; RESP 18
[2016-08-02] MEDS: FERROUS SULFATE (SR) 142 MG TAB PO SCH ×2 (08:35→21:35)
[2016-08-02] MEDS: AMLODIPINE 5 MG TAB PO SCH (08:36)
[2016-08-02] MEDS: DOXYCYCLINE 100 MG TAB PO SCH ×2 (08:37→21:35)
[2016-08-02] MEDS: SERTRALINE 50 MG TAB PO SCH (08:37)
[2016-08-02] MEDS: ENOXAPARIN 40 MG/0.4 ML SYG SC SCH (08:38)
[2016-08-02] MEDS: ARIPIPRAZOLE 5 MG TAB PO SCH (08:40)
--- NOTE | 2016-08-02 16:18 | PN ---
DATE: 08/02/2016 SUBJECTIVE: The patient is more comfortable and in fact he is eating lunch and denies having any pa in or discomfort. The patient does have a history of urinary retention and bilateral hydronephrosis secondary to the urinary retention. At the time of admission, 3 liters were drained out of his pablo dder after the insertion of the Nava catheter. OBJECTIVE: VITAL SIGNS: His temperature today is 97.8, pulse 63, respiration 18, blood pressure 114/69. ABDOMEN: Nava catheter is draining clear urine. There is very little sediment in it. LABORATORIES: The urine culture from 07/30/2016 showed no growth after 48 hours. The CBC shows a w alyssa count of 6.4, hemoglobin 10.0, hematocrit 31.6. BUN is 40, creatinine 2.83. MEDICATIONS: The patient is also on: 1. Doxycycline for his cellulitis. 2. Finasteride. 3. Sertraline. 4. Abilify. PLAN: 1. For the time being, we shall keep him on the same medications. 2. Keep the Nava catheter in and if we have to remove the catheter, he may need to learn how to do self-catheterization or have the catheter all the time. Dictated By: MAXWELL PEREZ/MEGAN Conf#: [id number] DID#: [id number]
--- NOTE | 2016-08-02 19:01 | PN ---
DATE: 08/02/2016 SUBJECTIVE: The patient is awake, alert. No current complaints. OBJECTIVE: VITAL SIGNS: Temperature 97.8, blood pressure 114/69, pulse of 63, respiration rate 18, O2 saturati on 98% on room air. HEENT: Pupils equally round, reactive to light. CHEST: Lungs clear to auscultation. CARDIAC: Regular rate and rhythm. ABDOMEN: Active bowel sounds, soft, nondistended, nontender. EXTREMITIES: Bilateral lower extremity with venous stasis changes. Left lower leg dressing clean a nd dry. LABORATORY DATA: The urine culture grows nothing after 48 hours. The wound culture is growing scan t growth of coag negative staph that is resistant to cefazolin, Cipro, erythromycin, levofloxacin, o xacillin, and penicillin as well as Bactrim. It is sensitive to clindamycin, doxycycline, rifampin, and vancomycin. ASSESSMENT AND PLAN: 1. Left lower extremity cellulitis and open wound. Appreciate consultation by Dr. Rafael Sue. The c urrent recommendation to discontinue IV vancomycin and start p.o. doxycycline. 2. Atonic bladder. The patient is currently on Nava catheter with further plans per urology. 3. Anemia, status post Epogen injections and is now on iron supplement. I will follow this clinica lly and check a stool occult blood just in case there is some chronic gastrointestinal blood loss. Dictated By: DAMARIS QUINTANA MD DP/NTS Conf#: [id number] DID#: [id number] CC: KAROLINA GIRALDO MD;*End*
[2016-08-02 20:00] VITALS: BP 124/66; RESP 18
[2016-08-02] MEDS: FINASTERIDE 5 MG TAB PO SCH (21:35)
[2016-08-03 05:42] LABS: ADD SCAN DIFF NO
[2016-08-03 05:50] LABS: BASOPHILS % 0.7 % (0.0-2.0); EOSINOPHILS # 0.4 10^3/ul (0.0-0.5); EOSINOPHILS % 7.1 % (0.0-7.0); HEMATOCRIT 32.5 % (42.0-52.0); HEMOGLOBIN 10.2 g/dl (14.0-18.0); LYMPHOCYTES # 1.4 10^3/ul (0.8-2.9); LYMPHOCYTES % 22.8 % (15.0-51.0); MEAN CORPUSCULAR HEMOGLOBIN 30.6 pg (29.0-33.0); MEAN CORPUSCULAR HGB CONC 31.4 g/dl (32.0-37.0); MEAN CORPUSCULAR VOLUME 97.6 fl (82.0-101.0); MEAN PLATELET VOLUME 9.3 fl (7.4-10.4); MONOCYTE # 0.5 10^3/ul (0.3-0.9); MONOCYTES % 8.5 % (0.0-11.0); NEUTROPHIL # 3.6 10^3/ul (1.6-7.5); NEUTROPHILS % 60.6 % (39.0-77.0); PLATELET COUNT 242 10^3/UL (140-415); RED BLOOD COUNT 3.33 10^6/ul (4.70-6.10); RED CELL DISTRIBUTION WIDTH 12.6 % (11.5-14.5); WHITE BLOOD COUNT 5.9 10^3/ul (4.8-10.8)
[2016-08-03 06:03] LABS: CREATININE 2.45 mg/dl (0.61-1.24)
[2016-08-03 06:04] LABS: CALCIUM 8.6 mg/dl (8.4-10.2)
--- NOTE | 2016-08-03 07:30 | CONS ---
Date/Time of Note Date/Time of Note DATE: 08/03/16 TIME: 07: Assessment/Plan Assessment/Plan Chief Complaint/Hosp Course 1) LLE cellulitis with open sores this is mild and doubt there is a deeper infection but will check ESR and CRP anyway re-culture the site get nasal cx for MRSA continue with just Vanco at this time unable to add rifampin due to pt being on abilify (it will lower the dose of abilify) likely pt will be able to be treated with oral doxycycline will continue iv vanco till improvement is noted. 07/31 - doing well, continue with IV vanco wound cx is NGTD, nasal swab is also NGTD CRP is low, so doubt any deeper infection when pt is ready for d/c can change to po clinda or doxy 08/02 - doing well d/c IV vanco and start po doxycycline nasal swab for neg for MRSA wound cx has only CoNS now 08/03 - continue with po doxy thru 08/12 (2 week course) ok to d/c isolation, no mrsa at this time found I will sign off on case, thank you 2) Increase in creatinine this is new since 2015, due to bactrim? will check u/a and urine cx repeat labs in a.m. and consider renal u/s 07/31 - this is not new u/a has mild-mod pyuria but urine cx is NGTD 3) increase in globulins this is not new but it is higher will order serum protein electropheresis 08/02 - SPEP only show inflammatory response no spike 4) HTN Problems: Consultation Date/Type/Reason Admit Date/Time Jul 29, 2016 at 22:52 Initial Consult Date 07/30/16 Type of Consultation: ID 24 HR Interval Summary Free Text/Dictation pt denies N, V, D breathing is ok no pain to LLE Exam/Review of Systems Vital Signs Vitals Vital Signs Date Time Temp Pulse Resp B/P Pulse Ox O2 Delivery O2 Flow Rate FiO2 08/02/16 20:00 98.1 73 18 124/66 99 07/31/16 19:50 Room Air Intake and Output 08/02/16 08/02/16 08/03/16 15:00 23:00 07:00 Intake Total 1480 ml 530 ml Output Total 1500 ml 900 ml Balance -20 ml -370 ml Exam Constitutional: alert, oriented Head: normocephalic Eyes: nl sclera ENMT: mucosa pink and moist Respiratory: clear to auscultation Cardiovascular: regular rate and rhythm Gastrointestinal: non-tender, soft Extremities: other (L calf is bandaged but no increase heat, stage II ulcers still present) Results Result Diagram: 08/03/16 0505 08/03/16 0505 Results 24 hrs Laboratory Tests Test 08/03/16 05:05 White Blood Count 5.9 Red Blood Count 3.33 L Hemoglobin 10.2 L Hematocrit 32.5 L Mean Corpuscular Volume 97.6 Mean Corpuscular Hemoglobin 30.6 Mean Corpuscular Hemoglobin Concent 31.4 L Red Cell Distribution Width 12.6 Platelet Count 242 Mean Platelet Volume 9.3 Neutrophils % 60.6 Lymphocytes % 22.8 Monocytes % 8.5 Eosinophils % 7.1 H Basophils % 0.7 Nucleated Red Blood Cells % 0.0 Neutrophils # 3.6 Lymphocytes # 1.4 Monocytes # 0.5 Eosinophils # 0.4 Basophils # 0.0 Nucleated Red Blood Cells # 0.0 Sodium Level 138 Potassium Level 4.0 Chloride Level 106 Carbon Dioxide Level 23 Anion Gap 13 Blood Urea Nitrogen 39 H Creatinine 2.45 H Glucose Level 90 Calcium Level 8.6 Medications Medications Current Medications Amlodipine Besylate (Norvasc) 5 mg DAILY PO Last administered on 08/02/16 08: 36; Admin Dose 5 MG; Start 07/30/16 at 09:00 Aripiprazole (Abilify) 5 mg DAILY PO Last administered on 08/02/16 08:40; Admin Dose 5 MG; Start 07/30/16 at 09:00 Finasteride (Proscar) 5 mg QHS PO Last administered on 08/02/16 21:35; Admin Dose 5 MG; Start 07/30/16 at 21:00 Sertraline HCl (Zoloft) 50 mg DAILY PO Last administered on 08/02/16 08:37; Admin Dose 50 MG; Start 07/30/16 at 09:00 Acetaminophen (Tylenol Tab) 650 mg Q6H PRN PO PAIN AND OR ELEVATED TEMP; Start 07/30/16 at 01:30 Acetaminophen/ Hydrocodone Bitart ([place] (5/325)) 1 tab Q4H PRN PO PAIN; Start 07/30/16 at 01:30 Enoxaparin Sodium (Lovenox) 40 mg DAILY SC Last administered on 08/02/16 08:38 ; Admin Dose 40 MG; Start 07/30/16 at 09:00 Ferrous Sulfate (Slow Fe) 142 mg BID PO Last administered on 08/02/16 21:35; Admin Dose 142 MG; Start 08/01/16 at 21:00 Doxycycline Hyclate (Vibramycin) 100 mg BID PO Last administered on 08/02/16 21:35; Admin Dose 100 MG; Start 08/02/16 at 09:00 IRINA DE LA ROSA MD Aug 03, 2016 07:30
[2016-08-03 08:13] VITALS: BP 119/59; RESP 18
[2016-08-03] MEDS: SERTRALINE 50 MG TAB PO SCH (09:22)
[2016-08-03] MEDS: DOXYCYCLINE 100 MG TAB PO SCH ×2 (09:22→20:55)
[2016-08-03] MEDS: ARIPIPRAZOLE 5 MG TAB PO SCH (09:22)
[2016-08-03] MEDS: FERROUS SULFATE (SR) 142 MG TAB PO SCH ×2 (09:22→20:55)
[2016-08-03] MEDS: AMLODIPINE 5 MG TAB PO SCH (09:23)
[2016-08-03] MEDS: ENOXAPARIN 40 MG/0.4 ML SYG SC SCH (09:26)
--- NOTE | 2016-08-03 13:25 | PN ---
DATE: 08/03/2016 SUBJECTIVE: The patient is feeling better without complaint. OBJECTIVE: VITAL SIGNS: Temperature 98.2, respirations 18, pulse 67, blood pressure 119/59, oxygen saturation 100% on room air. GENERAL: Well-developed, well-nourished male in no acute distress. SKIN: Healing ulcers in the left lower extremity with minimal erythema, no drainage. No erythema o f the right lower extremity. LUNGS: Clear to auscultation bilaterally. HEART: Regular rate and rhythm. ABDOMEN: Soft, nontender, nondistended. GENITOURINARY: Nava is in place. LABORATORY DATA: Hemoglobin of 10.2, hematocrit of 32.5, platelets 242. White blood cell count 5.9 , creatinine 2.45, BUN of 39. Sodium 138, potassium 4.0, chloride 106, bicarbonate 23, sugar of 90, iron is 48, TIBC 265, percent saturation 18. ASSESSMENT AND PLAN: 1. Cellulitis. The patient continues to improve. Repeat cultures show coag negative staph and iso lation can be discontinued and the patient changed over from vancomycin to now being on oral doxycyc line. The patient may be able to be transferred back to his board and care instead of going to a [facility] home for further care as patient no longer has MRSA. We will have case management evaluate th is and see whether or not this can be done. 2. Hypertension. Continue with patient's blood pressure medications and diet. 3. Acute on chronic renal failure, somewhat improved with Nava catheter placement. The patient ramirez s atonic bladder and will need to continue with the Nava catheter and eventually learn how to self -catheterize. We will continue with the Nava in place for now. 4. Depression, stable. Continue his medications. 5. Anemia, stable. Continue to follow. Iron levels are normal. Dictated By: TONI TAYLOR MD SR/MEGAN Conf#: [id number] DID#: [id number]
[2016-08-03] MEDS: FINASTERIDE 5 MG TAB PO SCH (20:55)
[2016-08-03 21:36] VITALS: BP 132/61; RESP 18
--- NOTE | 2016-08-04 00:32 | PN ---
DATE: 08/03/2016 SUBJECTIVE: The patient has urinary retention. He denies having any pain or discomfort. OBJECTIVE: VITAL SIGNS: His temperature is 98.2, pulse is 67, respiration 18, blood pressure 119/39. ABDOMEN: Soft. GENITOURINARY: He does have an indwelling Nava catheter and that is draining clear urine. MEDICATIONS: Include: 1. Vibramycin. 2. Ferrous sulfate. 3. Proscar. 4. Amlodipine. 5. Abilify. 6. Sertraline. 7. Lovenox. 8. Tylenol tablets. 9. [place]. LABORATORY DATA: CBC shows a white count of 5.9, hemoglobin 10.2, hematocrit 32.5, platelet count 2 42,000. BUN is 39, creatinine 2.45. Sodium 138, potassium 4.0, chloride 106, CO2 of 23. IMPRESSION: 1. Urinary retention. 2. Chronic kidney disease. PLAN: We will try to discontinue the Nava catheter in the morning and check if he does void and hi s postvoid residual and do a straight catheterization on him. If this does not work, then we will h ave to put the catheter in and leave it in. The patient may have to learn how to do self-catheteriz ation, but I am not sure he is capable of doing that, but if we need to do that, we will try to do a nd, if it does not work, then we would always could put the catheter again for him. Dictated By: MAXWELL FLORES MD BB/MEGAN Conf#: [id number] DID#: [id number] CC: KAROLINA GIRALDO MD;*End*
[2016-08-04 04:56] LABS: ADD SCAN DIFF NO
[2016-08-04 05:31] LABS: CALCIUM 8.7 mg/dl (8.4-10.2); CREATININE 2.61 mg/dl (0.61-1.24); POTASSIUM 4.1 mmol/L (3.5-5.1)
[2016-08-04 05:39] LABS: BASOPHILS % 0.6 % (0.0-2.0); EOSINOPHILS # 0.4 10^3/ul (0.0-0.5); EOSINOPHILS % 5.7 % (0.0-7.0); HEMATOCRIT 32.9 % (42.0-52.0); HEMOGLOBIN 10.5 g/dl (14.0-18.0); LYMPHOCYTES # 1.4 10^3/ul (0.8-2.9); LYMPHOCYTES % 21.8 % (15.0-51.0); MEAN CORPUSCULAR HGB CONC 31.9 g/dl (32.0-37.0); MEAN CORPUSCULAR VOLUME 97.1 fl (82.0-101.0); MEAN PLATELET VOLUME 9.5 fl (7.4-10.4); MONOCYTE # 0.6 10^3/ul (0.3-0.9); MONOCYTES % 9.7 % (0.0-11.0); NEUTROPHILS % 61.9 % (39.0-77.0); PLATELET COUNT 245 10^3/UL (140-415); RED BLOOD COUNT 3.39 10^6/ul (4.70-6.10); RED CELL DISTRIBUTION WIDTH 12.3 % (11.5-14.5); WHITE BLOOD COUNT 6.5 10^3/ul (4.8-10.8)
[2016-08-04 08:13] VITALS: BP 110/61; RESP 18
[2016-08-04] MEDS: DOXYCYCLINE 100 MG TAB PO SCH ×2 (08:34→20:41)
[2016-08-04] MEDS: ENOXAPARIN 40 MG/0.4 ML SYG SC SCH (08:34)
[2016-08-04] MEDS: ARIPIPRAZOLE 5 MG TAB PO SCH (08:34)
[2016-08-04] MEDS: SERTRALINE 50 MG TAB PO SCH (08:34)
[2016-08-04] MEDS: AMLODIPINE 5 MG TAB PO SCH (08:35)
[2016-08-04] MEDS: FERROUS SULFATE (SR) 142 MG TAB PO SCH ×2 (08:36→20:41)
--- NOTE | 2016-08-04 13:21 | PN ---
DATE: 08/04/2016 SUBJECTIVE: The patient is without complaints. The patient denies any urge to urinate and is unabl e to void. OBJECTIVE: VITAL SIGNS: Temperature 97.7, pulse 74, respirations 18, blood pressure 110/61, and oxygen saturat ion 99% on room air. GENERAL: Well-developed, well-nourished male in no acute distress. SKIN: Minimal erythema of the left lower extremity with no drainage. EXTREMITIES: Trace edema, right lower extremity with stasis changes, but no erythema. LUNGS: Clear to auscultation bilaterally. HEART: Regular rate and rhythm. ABDOMEN: Soft, nontender. LABORATORY EXAMINATION: Creatinine 2.61, BUN is 45, sodium 139, potassium 4.1, chloride 105, bicarb caitlin 23, calcium 8.7, glucose is 96. White blood cell count 6.5, hemoglobin 10.5, hematocrit 32.9, platelets 245. ASSESSMENT AND PLAN: 1. Cellulitis, bilateral lower extremities. The patient continues to improve and is doing well on p.o. doxycycline. The patient is out of isolation and will try to arrange for transfer back to the patient's board and care if they will accept him. Will try to arrange for this, and patient will li vinh be ready for discharge tomorrow. 2. Acute on chronic renal failure, worse today. The patient had the catheter removed and was unabl e to void and will do a straight cath to empty the bladder at this time and try to teach the patient straight catheterization. Otherwise, the patient will need Nava catheter placement after. 3. Depression. Continue the patient's medications. 4. Anemia. Remains stable. Continue to follow. DISCHARGE PLANNING: The patient should be okay for discharge on p.o. antibiotics tomorrow and will try to arrange for his board and care versus other facility depending on whether or not the board an d care accepts him. Dictated By: TONI TAYLOR MD, SR/MEGAN Conf#: [id number] DID#: [id number]
[2016-08-04] MEDS: FINASTERIDE 5 MG TAB PO SCH (20:41)
[2016-08-04 21:20] VITALS: BP 124/70; RESP 18
--- NOTE | 2016-08-04 23:02 | PN ---
DATE: 08/04/2016 SUBJECTIVE: The patient is unable to urinate, has urinary retention after the Nava catheter was re moved. The patient is comfortable and denies having any pain. OBJECTIVE: VITAL SIGNS: His temperature is 97.7. The blood pressure is 110/61, the pulse is 74, respiration i s 18. ABDOMEN: Bladder is distended, yet the patient is comfortable. He has not been able to urinate. T he postvoid residual, the bladder scan showed over 500 mL of urine. Therefore, decided to put a Fol ey catheter for him. I inserted a 16-[place] Nava catheter and drained 550 mL. Earlier the nurse w as unable to do the straight cath and he did have some bleeding from the urethra. I was hoping that the nurses could do the straight catheterization on him and maybe at some time teach him how to do self catheterization. However, that was not successful, and I initially doubted that the patient wo uld be able to learn himself. LABORATORY DATA: His CBC shows a white count of 6.5, hemoglobin 10.5, hematocrit 32.9. BUN is 45, creatinine 2.61. Sodium 139, potassium 4.1, chloride 105, CO2 of 23. IMPRESSION: 1. Urinary retention. 2. Atonic bladder. 3. The patient previously had also bilateral hydronephrosis secondary to the urinary retention. PLAN: To put the Nava catheter in and leave it in and that was done. Dictated By: MAXWELL FLORES MD BB/MEGAN Conf#: [id number] DID#: [id number] CC: KAROLINA GIRALDO MD;*EndCC*
[2016-08-05 05:42] LABS: ADD SCAN DIFF NO
[2016-08-05 05:51] LABS: BASOPHIL # 0.1 10^3/ul (0.0-0.1); BASOPHILS % 0.8 % (0.0-2.0); EOSINOPHILS # 0.3 10^3/ul (0.0-0.5); EOSINOPHILS % 5.2 % (0.0-7.0); HEMATOCRIT 33.4 % (42.0-52.0); HEMOGLOBIN 10.6 g/dl (14.0-18.0); LYMPHOCYTES # 1.4 10^3/ul (0.8-2.9); LYMPHOCYTES % 22.5 % (15.0-51.0); MEAN CORPUSCULAR HEMOGLOBIN 31.1 pg (29.0-33.0); MEAN CORPUSCULAR HGB CONC 31.7 g/dl (32.0-37.0); MEAN CORPUSCULAR VOLUME 97.9 fl (82.0-101.0); MEAN PLATELET VOLUME 9.3 fl (7.4-10.4); MONOCYTE # 0.8 10^3/ul (0.3-0.9); MONOCYTES % 13.2 % (0.0-11.0); NEUTROPHIL # 3.7 10^3/ul (1.6-7.5); PLATELET COUNT 260 10^3/UL (140-415); RED BLOOD COUNT 3.41 10^6/ul (4.70-6.10); RED CELL DISTRIBUTION WIDTH 12.4 % (11.5-14.5); WHITE BLOOD COUNT 6.4 10^3/ul (4.8-10.8)
[2016-08-05 08:11] VITALS: BP 110/57; RESP 18
[2016-08-05 08:30] LABS: POTASSIUM 3.8 mmol/L (3.5-5.1)
[2016-08-05 08:32] LABS: CREATININE 2.4 mg/dl (0.61-1.24)
[2016-08-05] MEDS: ARIPIPRAZOLE 5 MG TAB PO SCH (08:40)
[2016-08-05] MEDS: ENOXAPARIN 40 MG/0.4 ML SYG SC SCH (08:40)
[2016-08-05] MEDS: SERTRALINE 50 MG TAB PO SCH (08:41)
[2016-08-05] MEDS: AMLODIPINE 5 MG TAB PO SCH (08:41)
[2016-08-05] MEDS: DOXYCYCLINE 100 MG TAB PO SCH ×2 (08:41→21:01)
[2016-08-05] MEDS: FERROUS SULFATE (SR) 142 MG TAB PO SCH ×2 (09:27→21:45)
--- NOTE | 2016-08-05 13:20 | PN ---
DATE: 08/05/2016 SUBJECTIVE: The patient is without complaints. OBJECTIVE: VITAL SIGNS: Temperature 97.5, pulse 68, respirations 18, blood pressure 110/57, oxygen saturation 99% on room air. GENERAL: Well-developed, well-nourished male in no acute distress, lying in bed. SKIN: A shallow ulcer on the left lower extremity with minimal erythema, no drainage, no eschar. R ight lower extremity with stasis changes, otherwise no erythema. LUNGS: Clear to auscultation bilaterally. HEART: Regular rate and rhythm. ABDOMEN: Soft, nontender, nondistended. GENITOURINARY EXAMINATION: Nava is in place. NEUROLOGIC: Nonfocal. LABORATORY DATA: Hemoglobin of 10.6, hematocrit 33.4, platelets 260, white blood cell count 6.4. S odium 139, potassium 3.8, chloride 106, bicarbonate 22, BUN of 44, creatinine 2.4, blood sugar of 93 , calcium 9.0. ASSESSMENT AND PLAN: 1. Cellulitis. The patient continues to improve with p.o. antibiotics. No need for further IV ant ibiotics and the patient no longer needs isolation, as this patient only growing coag-negative staph . 2. Urinary retention. The patient had to have Nava put back in as patient was unable to void and will be unable to adequately do intermittent straight catheterization. Because the patient has a Fo osmin catheter, cannot go back to the boarding care. We will have to find a fpc facility for placement. 3. Acute on chronic renal failure. This is improved. We will continue to monitor, recheck in the morning. 4. Anemia. This is improved. We will continue to monitor. 5. Hypertension, stable. Continue with medications, diet. 6. Depression. We will continue the patient's medication. 7. Discharge planning. Patient will likely need fpc facility placement due to Nava ca theter. We will arrange for this. Dictated By: TONI TAYLOR MD, SR/MEGAN Conf#: [id number] DID#: [id number]
--- NOTE | 2016-08-05 13:49 | PN ---
DATE: 08/05/2016 SUBJECTIVE: Urinary retention. The patient is comfortable and has no complaints. He has failed pr ior attempts to removing the Nava catheter and see if he does urinate on his own. Patient does hav e atonic bladder with urinary retention and bilateral hydronephrosis. OBJECTIVE: VITAL SIGNS: Temperature is 97.5, blood pressure 110/57, pulse 68, respiration 18. LABORATORY DATA: CBC shows a white count of 6.4, hemoglobin 10.6, hematocrit 33.4, BUN is 44, creat inine 2.40. Electrolytes are normal. IMPRESSION: Urinary retention, atonic bladder. Recommendation is to keep the Nava catheter in and the patient failed prior attempt to remove the F oley and see that he does urinate on his own. I am not sure whether he is able to do self-catheteriz ation on his own. Dictated By: MAXWELL PEREZ/MEGAN Conf#: [id number] DID#: [id number]
[2016-08-05 20:48] VITALS: BP 122/58; RESP 20
[2016-08-05] MEDS: FINASTERIDE 5 MG TAB PO SCH (21:01)
[2016-08-06 05:21] LABS: ADD SCAN DIFF NO
[2016-08-06 05:34] LABS: BASOPHILS % 0.6 % (0.0-2.0); EOSINOPHILS # 0.4 10^3/ul (0.0-0.5); EOSINOPHILS % 5.6 % (0.0-7.0); HEMATOCRIT 32.4 % (42.0-52.0); HEMOGLOBIN 10.3 g/dl (14.0-18.0); LYMPHOCYTES # 1.5 10^3/ul (0.8-2.9); LYMPHOCYTES % 22.9 % (15.0-51.0); MEAN CORPUSCULAR HEMOGLOBIN 31.1 pg (29.0-33.0); MEAN CORPUSCULAR HGB CONC 31.8 g/dl (32.0-37.0); MEAN CORPUSCULAR VOLUME 97.9 fl (82.0-101.0); MEAN PLATELET VOLUME 9.3 fl (7.4-10.4); MONOCYTE # 0.7 10^3/ul (0.3-0.9); MONOCYTES % 10.8 % (0.0-11.0); NEUTROPHIL # 3.9 10^3/ul (1.6-7.5); NEUTROPHILS % 59.8 % (39.0-77.0); PLATELET COUNT 270 10^3/UL (140-415); RED BLOOD COUNT 3.31 10^6/ul (4.70-6.10); RED CELL DISTRIBUTION WIDTH 12.5 % (11.5-14.5); WHITE BLOOD COUNT 6.6 10^3/ul (4.8-10.8)
[2016-08-06 05:55] LABS: CALCIUM 8.9 mg/dl (8.4-10.2); CREATININE 2.58 mg/dl (0.61-1.24); POTASSIUM 4.2 mmol/L (3.5-5.1)
[2016-08-06 07:30] VITALS: BP 111/60; RESP 18
[2016-08-06] MEDS: AMLODIPINE 5 MG TAB PO SCH (08:08)
[2016-08-06] MEDS: ARIPIPRAZOLE 5 MG TAB PO SCH (08:08)
[2016-08-06] MEDS: FERROUS SULFATE (SR) 142 MG TAB PO SCH (08:08)
[2016-08-06] MEDS: SERTRALINE 50 MG TAB PO SCH (08:08)
[2016-08-06] MEDS: DOXYCYCLINE 100 MG TAB PO SCH (08:08)
[2016-08-06] MEDS: ENOXAPARIN 40 MG/0.4 ML SYG SC SCH (08:10)
--- NOTE | 2016-08-06 13:46 | PN ---
DATE: 08/06/2016 SUBJECTIVE: The patient without complaints. OBJECTIVE: VITAL SIGNS: Temperature 97.6, pulse 68, respirations 18, blood pressure 111/60, oxygen saturation 100% on room air. SKIN: Trace edema bilateral lower extremities with no erythema, healing ulcerations, left lower ext remity, stasis changes bilateral lower extremities. LUNGS: Clear to auscultation bilaterally. HEART: Regular rate and rhythm. GROIN: Mild erythema bilateral clear. GENITOURINARY: Nava to gravity. LABORATORY DATA: Hemoglobin is 10.6, white blood cell count 6.6, hematocrit 32.4, platelets 270, cr eatinine 2.58, BUN 49, blood sugar 93. Sodium 137, potassium 4.2. ASSESSMENT AND PLAN: 1. Cellulitis, continues to improve and will continue doxycycline b.i.d. through August 12. 2. Acute on chronic renal insufficiency, worse today and may be related to fluid. We will continue to monitor the patient's kidney function, but the patient will continue to need Nava catheter at t his time. The patient will be transferred to a senior living and we may try teaching the patient bella f-catheterization, so he may return at some point to the board and care in the future. 3. Anemia. We will continue with the patient's iron. 4. Depression. Continue with the patient's medications. 5. Hypertension. Will continue with the patient's medications and diet. 6. Discharge planning. The patient is stable for discharge to senior living when bed becomes availa ble. 7. Tinea crura. Will give clotrimazole bid to the affected area. Dictated By: TONI TAYLOR MD, SR/MEGAN Conf#: [id number] DID#: [id number]
[2016-08-06] MEDS ORDERED: CLOTRIMAZOLE 1% 30 GM CR TOP SCH (15:00)
== END 2016-08-06 18:28 | DRG 593 ==
LOC: FTE 20:34 → PP2 22:52
PROVIDERS: ADMIT Internal Medicine; ATTEND Internal Medicine
DX: L97.929 Non-pressure chronic ulcer of unspecified part of left lower leg with unspecified severity (principal); L03.116 Cellulitis of left lower limb; N17.9 Acute kidney failure, unspecified; N04.9 Nephrotic syndrome with unspecified morphologic changes; N31.2 Flaccid neuropathic bladder, not elsewhere classified; B35.6 Tinea cruris; F84.5 Asperger's syndrome; S81.802A Unspecified open wound, left lower leg, initial encounter; D64.9 Anemia, unspecified; I12.9 Hypertensive chronic kidney disease with stage 1 through stage 4 chronic kidney disease, or unspecified chronic kidney disease; L08.89 Other specified local infections of the skin and subcutaneous tissue; B95.62 Methicillin resistant Staphylococcus aureus infection as the cause of diseases classified elsewhere; F32.9 Major depressive disorder, single episode, unspecified; N18.9 Chronic kidney disease, unspecified
CPT/HCPCS: 36415; 76775; 80048; 80053; 81001; 81003; 82270; 83540; 84153; 84154; 84155; 84165; 85025; 85651; 86140; 87070; 87081; 87086; 96374; A4310; J0692; J0886; J1650; J3370; J7040; J7050

== ENCOUNTER 2018-10-20 15:19 | Inpatient (IN) | payer MEDICARE, OTHER ==
[~2018-10-20] VITALS: Ht 182.9 cm; Wt 78.0 kg
[~2018-10-20 15:19] MED LIST changes: +ARIP5TAB14 PO; -ARIP5TAB7 PO
[2018-10-20 15:23] VITALS: Ht 182.9 cm; Wt 78.0 kg
--- NOTE | 2018-10-20 15:49 | ERD ---
ER Documentation Chief Complaint Chief Complaint has autism, has hematuria today, lives boarding care, cath weeky HPI 72-year-old male with a history of urinary retention, atonic bladder, chronic kidney disease, hypertension, depression, schizophrenia and hydronephrosis referred to the ED for evaluation of hematuria. [facility] and a visiting nurse catheterizes him every 2 to 3 days. Today patient had gross hematuria and was referred to the ED for further evaluation. Patient is otherwise asymptomatic. Denies abdominal pain or back pain. No nausea, vomiting, diarrhea constipation. No dysuria or polyuria. No chest pain, palpitations or shortness of breath. No fevers or chills. ROS All systems reviewed and are negative except as per history of present illness. Medications Home Meds Reported Medications Multivitamins* (Theragran*) 1 Tab Tab, 1 TAB PO DAILY, TAB 10/20/18 Ferrous Sulfate* (Ferrous Sulfate*) 325 Mg Tabec, 325 MG PO DAILY, TAB 10/20/18 Sertraline Hcl* (Sertraline Hcl*) 50 Mg Tablet, 50 MG PO DAILY, #30 TAB 10/20/18 Finasteride* (Finasteride*) 5 Mg Tablet, 5 MG PO DAILY, TAB 10/20/18 Aripiprazole* (Abilify*) 5 Mg Tab, 5 MG PO DAILY, #30 TAB 10/20/18 Amlodipine Besylate* (Norvasc*) 5 Mg Tablet, 5 MG PO DAILY, TAB 10/20/18 Discontinued Reported Medications Amlodipine Besylate* (Norvasc*) 5 Mg Tablet, 5 MG PO DAILY, TAB 12/01/15 Bethanechol Chloride* (Bethanechol Chloride*) 25 Mg Tablet, 25 MG PO TID, TAB 11/20/15 Finasteride* (Finasteride*) 5 Mg Tablet, 5 MG PO QHS, TAB 11/20/15 Sertraline Hcl* (Sertraline Hcl*) 50 Mg Tablet, 50 MG PO DAILY, #30 TAB 11/20/15 Aripiprazole* (Abilify*) 5 Mg Tab, 5 MG PO DAILY, #30 TAB 11/20/15 Allergies Allergies: Coded Allergies: No Known Allergy (Unverified , 10/20/18) PMhx/Soc Reviewed in chart. As per HPI. History of Surgery: Yes (Tonsilectomy, Prostate resection) Anesthesia Reaction: No Hx Neurological Disorder: No Hx Respiratory Disorders: No Hx Cardiac Disorders: No Hx Psychiatric Problems: Yes (Anxiety, Depression) Hx Miscellaneous Medical Probl: No Hx Alcohol Use: No Hx Substance Use: No Hx Tobacco Use: No FmHx No family history relevant to presenting complaint Physical Exam Vitals Vital Signs Date Temp Pulse Resp B/P (MAP) Pulse Ox O2 O2 Flow FiO2 Time Delivery Rate 10/20/18 98.4 102 21 129/68 99 Room Air 19:00 (88) 10/20/18 95 18 99 21 18:12 10/20/18 98.4 96 14 124/63 100 Room Air 18:00 (83) 10/20/18 98.4 88 18 120/72 99 Room Air 17:00 (88) 10/20/18 98.4 90 18 131/72 99 Room Air 16:10 (91) 10/20/18 98.1 108 18 160/74 99 15:23 (102) Physical Exam Const: Alert, no acute distress Head: Atraumatic Eyes: Normal Conjunctiva ENT: Normal External Ears, Nose and Mouth. Neck: Full range of motion. No JVD. No lymphadenopathy. Resp: Breath sounds are equal and clear to auscultation bilaterally. No rales rhonchi or wheezes. Cardio: Regular rate and rhythm, no murmurs Abd: Soft. Mild suprapubic tenderness and distention. Normal bowel sounds. No rebound or guarding. Skin: No petechiae or rashes Back: No midline or flank tenderness Ext: No cyanosis, or edema Neur: Awake and alert Psych: Cooperative. Bizarre affect. Result Diagram: 10/21/18 0534 10/20/18 1604 Results 24 hrs Laboratory Tests Test 10/20/18 16:04 10/20/18 17:35 White Blood Count 11.2 10^3/ul Red Blood Count 3.72 10^6/ul Hemoglobin 11.4 g/dl Hematocrit 34.1 % Mean Corpuscular Volume 91.7 fl Mean Corpuscular Hemoglobin 30.6 pg Mean Corpuscular Hemoglobin Concent 33.4 g/dl Red Cell Distribution Width 12.5 % Platelet Count 326 10^3/UL Mean Platelet Volume 8.3 fl Immature Granulocytes % 0.400 % Neutrophils % 71.3 % Lymphocytes % 20.1 % Monocytes % 7.0 % Eosinophils % 0.8 % Basophils % 0.4 % Nucleated Red Blood Cells % 0.0 /100WBC Immature Granulocytes # 0.040 10^3/ul Neutrophils # 8.0 10^3/ul Lymphocytes # 2.3 10^3/ul Monocytes # 0.8 10^3/ul Eosinophils # 0.1 10^3/ul Basophils # 0.1 10^3/ul Nucleated Red Blood Cells # 0.0 10^3/ul Urine Color RED Urine Clarity BLOODY Urine pH 7.0 Urine Specific [place] 1.016 Urine Ketones TRACE mg/dL Urine Nitrite POSITIVE mg/dL Urine Bilirubin NEGATIVE mg/dL Urine Urobilinogen NEGATIVE mg/dL Urine Leukocyte Esterase NEGATIVE Antonella/ul Urine Microscopic RBC 0 /HPF Urine Microscopic WBC 0 /HPF Urine Bacteria MANY /HPF Urine Hemoglobin 3+ mg/dL Urine Glucose 1+ mg/dL Urine Total Protein 2+ mg/dl Sodium Level 137 mmol/L Potassium Level 5.6 mmol/L Chloride Level 106 mmol/L Carbon Dioxide Level 21 mmol/L Anion Gap 10 Blood Urea Nitrogen 68 mg/dl Creatinine 3.27 mg/dl Est Glomerular Filtrat Rate mL/min mL/min Glucose Level 117 mg/dl Calcium Level 8.9 mg/dl Bedside Glucose 115 mg/dL Current Medications Medications Dose Sig/Bowen Start Time Status Last (Trade) Ordered Route PRN Stop Time Admin Dose Reason Admin Albuterol 15 mg ONCE STAT 10/20/18 DC 10/20/18 (Proventil INH 17:03 10/20/18 18:09 0.5% (Neb)) 17:04 Insulin 10 unit ONCE STAT 10/20/18 DC 10/20/18 Human IVP 17:03 10/20/18 17:37 Regular 17:04 (Humulin R) Dextrose ONCE PRN 10/20/18 DC 10/20/18 (D50w IV DECREASED 17:30 10/20/18 17:29 Syringe) GLUCOSE 21:28 Ceftriaxone 50 ml @ ONCE ONCE 10/20/18 DC 10/20/18 Sodium 100 mls/hr IVPB 18:00 10/20/18 19:50 18:29 Procedures/MDM DOCUMENTS REVIEWED: ED nurse, prior records EKG: Time: 17:40. Ventricular rate 71, normal CA and QRS intervals. No acute ST segment elevation or depression. No axis deviation or ectopy. My Interpretation: Normal EKG my Interpretation IMAGING: PROCEDURE: US Retroperitoneum CLINICAL INDICATION: Hydronephrosis TECHNIQUE: Multiple sonographic images of the kidneys and bladder were obtained. Evaluation was performed as well with vega scale and color and Doppler evaluation using a curved array transducer. The images were reviewed on a high-resolution PACS workstation. COMPARISON: US ABDOMEN 07/30/2016 FINDINGS: The kidneys are well visualized. The right kidney measures 10.0 cm in length. The left kidney measures 9.0 cm in length. Bilateral moderate hydronephrosis. No solid renal mass, calculus, or perinephric fluid collection. The bladder is significantly distended - bladder volume is 937 cc. Abdominal aorta and IVC are not visualized. IMPRESSION: 1. Urinary bladder is significantly distended, concerning for urinary retention and/or bladder outflow obstruction. 2. There is nonspecific moderate bilateral hydroureteronephrosis, possibly indicating urinary backflow secondary to bladder distension. RPTAT: PP .Shivam Heath MD, MD Date Time Electronically viewed and signed by .Shivam Heath MD, MD on 10/20/2018 17: 45 .R/ [employer] DECISION MAKIN-year-old male with a history of urinary retention, atonic bladder, chronic kidney disease, hypertension, depression, schizophrenia and hydronephrosis referred to the ED for evaluation of hematuria. CBC remarkable for mild leukocytosis and anemia but no thrombocytopenia. Chemistry significant for elevated BUN/creatinine of 68/3.27 which is increased from 49/2.58 on his previous admission in July 2016. Urinalysis significant for gross hematuria and pyuria. Culture obtained and Rocephin 1 g IV piggyback given. Bladder scan revealed a post residual volume of approximately 350 cc. Renal ultrasound significant for bladder distention and a urine volume of 937 with nonspecific bilateral hydronephrosis. Patient with gross hematuria, UTI and urinary retention. Acute on chronic renal insufficiency due to obstructive uropathy. Three-way Nava catheter and irrigation to be initiated. Mild hy perkalemia without EKG changes treated with D50/Insulin and nebulized beta agonists. Etiology likely infectious although an occult neoplasm is also possible. Urology, Dr. Martinez consulted in the ED. Admit to med/surg for further evaluation and management. CALLS/CONSULTS: Time: 16:48, Dr. Prado. Patient multiple times still no answer at 19:40 CALLS/CONSULTS: Time: 18:00, Dr. Martinez. PATIENT CARE TRANSITIONED: Time: 19:45, Dr Kirkland will accept the patient pending contact with Dr. Prado. Counseled patient and family regarding diagnosis, diagnostic results and plan for admission. Departure Diagnosis: Primary Impression: Acute urinary retention Additional Impressions: Hematuria Hematuria type: gross Qualified Codes: R31.0 - Gross hematuria Acute kidney injury superimposed on chronic kidney disease Hyperkalemia Urinary tract infection Urinary tract infection type: acute cystitis Hematuria presence: with hematuria Qualified Codes: N30.01 - Acute cystitis with hematuria Hydronephrosis Hydronephrosis type: other Qualified Codes: N13.39 - Other hydronephrosis Condition: Stable FABRICIO VERA MD Oct 20, 2018 15:49
[2018-10-20] MEDS ORDERED: ALBUTEROL 0.5% (NEB) 2.5 MG/0.5 ML AMP INH STA (17:03)
[2018-10-20] MEDS ORDERED: INSULIN REGULAR, HUMAN 100 UNIT/1 ML 3ML VIAL IVP STA (17:03)
[2018-10-20] MEDS ORDERED: DEXTROSE 50% 50 ML SYRINGE IV PRN (17:30)
[2018-10-20] MEDS ORDERED: AMLO5TAB4 PO (17:43)
[2018-10-20] MEDS ORDERED: ARIP5TAB14 PO (17:43)
[2018-10-20] MEDS ORDERED: SERT50TA6 PO (17:44)
[2018-10-20] MEDS ORDERED: FER325 PO (17:44)
[2018-10-20] MEDS ORDERED: MULTI PO (17:44)
[2018-10-20] MEDS ORDERED: FINA5TAB4 PO (17:44)
[2018-10-20] MEDS ORDERED: CEFTRIAXONE 1 GM/50 ML (PMX) 50 ML IVPB ONE (18:00)
--- NOTE | 2018-10-20 19:28 | CONS ---
Assessment/Plan Assessment/Plan Hospital Course (Demo Recall) 72-year-old male to have a history of atonic bladder and urinary retention was brought to the hospital because of gross hematuria. [facility] resides [id number] and he has a home health nurse who visits him and do straight cath on him once every 2 or 3 days. The patient was admitted before in this hospital with urinary retention and bilateral hydronephrosis and was diagnosed with atonic bladder. The patient does have a history of Asperger syndrome, major depression, hypertension, and chronic kidney disease. I did review his renal ultrasound and indeed his bladder was very distended and had probably clots in it. So went ahead and prepped and draped the genital area and inserted a 24 English three-way Nava catheter and drained the bladder completely and irrigated the clots out then I started him on continuous bladder irrigation. I did collect urine for culture and sensitivity as well as for cytology. Impression gross hematuria possible urinary tract infection and and urinary retention Plan: Three-way Nava catheter, continuous bladder irrigation, urine culture, urine cytology, IV antibiotics. Consultation Date/Type/Reason Admit Date/Time October 20, 2018 Date of Consultation: Oct 20, 2018 Type of Consult Urology Reason for Consultation Gross hematuria and urinary retention Requesting Provider: TONI TAYLOR MD- Date/Time of Note DATE: 10/20/18 TIME: 19:17 Hx of Present Illness 72-year-old male to have a history of atonic bladder and urinary retention was brought to the hospital because of gross hematuria. Patient resides in [id number] and he has a home health nurse who visits him and do straight cath on him once every 2 or 3 days. The patient was admitted before in this hospital with urinary retention and bilateral hydronephrosis and was diagnosed with atonic bladder. The patient does have a history of Asperger s yndrome, major depression, hypertension, and chronic kidney disease. Constitutional: no complaints Eyes: no complaints ENT: no complaints Respiratory: no complaints Cardiovascular: no complaints Gastrointestinal: no complaints Genitourinary: bleeding, hematuria Musculoskeletal: no complaints Skin: other (Cellulitis and redness of both lower extremities) Neurologic: no complaints Endocrine: no complaints Lymphatic: no complaints Psychological: depression Past Medical History Medical History: hypertension Home Meds Reported Medications Multivitamins* (Theragran*) 1 Tab Tab, 1 TAB PO DAILY, TAB 7/4/19 Ferrous Sulfate* (Ferrous Sulfate*) 325 Mg Tabec, 325 MG PO DAILY, TAB 10/20/18 Sertraline Hcl* (Sertraline Hcl*) 50 Mg Tablet, 50 MG PO DAILY, #30 TAB 10/20/18 Finasteride* (Finasteride*) 5 Mg Tablet, 5 MG PO DAILY, TAB 10/20/18 Aripiprazole* (Abilify*) 5 Mg Tab, 5 MG PO DAILY, #30 TAB 10/20/18 Amlodipine Besylate* (Norvasc*) 5 Mg Tablet, 5 MG PO DAILY, TAB 10/20/18 Discontinued Reported Medications Amlodipine Besylate* (Norvasc*) 5 Mg Tablet, 5 MG PO DAILY, TAB 12/01/15 Bethanechol Chloride* (Bethanechol Chloride*) 25 Mg Tablet, 25 MG PO TID, TAB 11/20/15 Finasteride* (Finasteride*) 5 Mg Tablet, 5 MG PO QHS, TAB 11/20/15 Sertraline Hcl* (Sertraline Hcl*) 50 Mg Tablet, 50 MG PO DAILY, #30 TAB 11/20/15 Aripiprazole* (Abilify*) 5 Mg Tab, 5 MG PO DAILY, #30 TAB 11/20/15 Medications Current Medications Dextrose (D50w Syringe) ONCE PRN IV DECREASED GLUCOSE Last administered on 10/20/18at 17:29; Admin Dose 50 ML; Start 10/20/18 at 17:30 Allergies: Coded Allergies: No Known Allergy (Unverified , 10/20/18) Past Surgical History Past Surgical Hx: other (History of transurethral resection of the prostate) Social History Alcohol Use: none Smoking Status: Never smoker Drug Use: none Exam/Review of Systems Exam Vitals Vital Signs Date Temp Pulse Resp B/P (MAP) Pulse Ox O2 O2 Flow FiO2 Time Delivery Rate 10/20/18 95 18 99 21 18:12 10/20/18 98.4 131/72 Room Air 16:10 (91) Constitutional: alert, oriented Psych: depression Head: normocephalic Eyes: nl conjunctiva ENMT: nl external ears & nose Neck: supple, non-tender Respiratory: normal air movement Cardiovascular: No jugular venous distention (JVD) Gastrointestinal: soft Genitourinary - Male: other (Distended urinary bladder, he has some redness and balanitis.) Extremities: other (Erythema and old cellulitis of both lower extremities) Neurological: nl mental status Lymph: nl lymph nodes Results Result Diagram: 10/20/18 1604 10/20/18 1604 Results 24hrs Laboratory Tests Test 10/20/18 16:04 10/20/18 17:35 White Blood Count 11.2 #H Red Blood Count 3.72 L Hemoglobin 11.4 L Hematocrit 34.1 L Mean Corpuscular Volume 91.7 Mean Corpuscular Hemoglobin 30.6 Mean Corpuscular Hemoglobin Concent 33.4 Red Cell Distribution Width 12.5 Platelet Count 326 # Mean Platelet Volume 8.3 Immature Granulocytes % 0.400 Neutrophils % 71.3 Lymphocytes % 20.1 Monocytes % 7.0 Eosinophils % 0.8 Basophils % 0.4 Nucleated Red Blood Cells % 0.0 Immature Granulocytes # 0.040 H Neutrophils # 8.0 H Lymphocytes # 2.3 Monocytes # 0.8 Eosinophils # 0.1 Basophils # 0.1 Nucleated Red Blood Cells # 0.0 Urine Color RED Urine Clarity BLOODY A Urine pH 7.0 Urine Specific [place] 1.016 Urine Ketones TRACE A Urine Nitrite POSITIVE A Urine Bilirubin NEGATIVE Urine Urobilinogen NEGATIVE Urine Leukocyte Esterase NEGATIVE Urine Microscopic RBC 0 Urine Microscopic WBC 0 Urine Bacteria MANY Urine Hemoglobin 3+ H Urine Glucose 1+ H Urine Total Protein 2+ H Sodium Level 137 Potassium Level 5.6 H Chloride Level 106 Carbon Dioxide Level 21 Anion Gap 10 Blood Urea Nitrogen 68 H Creatinine 3.27 H Est Glomerular Filtrat Rate mL/min Glucose Level 117 Calcium Level 8.9 Bedside Glucose 115 Imaging Imaging Renal ultrasound: 1. Urinary bladder is significantly distended, concerning for urinary retention and/or bladder outflow obstruction. 2. There is nonspecific moderate bilateral hydroureteronephrosis, possibly indicating urinary backflow secondary to bladder distension. Medications Medication Current Medications Dextrose (D50w Syringe) ONCE PRN IV DECREASED GLUCOSE Last administered on 10/20/18at 17:29; Admin Dose 50 ML; Start 10/20/18 at 17:30 MAXWELL FLORES MD Oct 20, 2018 19:27
[2018-10-20] MEDS ORDERED: ACETAMINOPHEN 325 MG TAB PO PRN (20:00)
[2018-10-20] MEDS ORDERED: ONDANSETRON 4 MG INJ IV PRN ×2 (20:00→23:00)
[2018-10-20 21:00] VITALS: BP 136/66; PULSE 112; RESP 16
[2018-10-20] MEDS ORDERED: IBUPROFEN 400 MG TAB PO PRN (23:00)
[2018-10-21 02:00] VITALS: BP 102/58; PULSE 89; RESP 19
[2018-10-21 07:49] VITALS: BP 107/60; PULSE 83; RESP 18
[2018-10-21] MEDS: FINASTERIDE 5 MG TAB PO SCH (09:55)
[2018-10-21] MEDS: AMLODIPINE 5 MG TAB PO SCH (09:55)
[2018-10-21] MEDS: SERTRALINE 50 MG TAB PO SCH (09:55)
[2018-10-21] MEDS: ARIPIPRAZOLE 5 MG TAB PO SCH (09:55)
[2018-10-21] MEDS ORDERED: hydrALAzine 20 MG INJ IV PRN (10:00)
[2018-10-21] MEDS ORDERED: CEFTRIAXONE 1 GM/50 ML (PMX) 50 ML IVPB ONE (10:00)
[2018-10-21] MEDS ORDERED: CEFTRIAXONE 1 GM/NS 50 ML IVPB SCH (10:30)
--- NOTE | 2018-10-21 10:44 | HP ---
DATE OF ADMISSION: 10/20/2018 ADMITTING DIAGNOSIS: Hematuria/urinary retention. HISTORY OF PRESENT ILLNESS: The patient is a 72-year-old male with Asperger's syndrome, sc hizophrenia, hypertension, urinary retention, chronic renal insufficiency who was sent to the emergen cy room after being found to have gross hematuria at his [facility]. The patient has been gettin g every 2 to 3 day straight catheterization due to chronic atonic bladder and urinary retention. The patient has been doing well over the last couple of years without any incidents except for occasiona l infection. The patient had some burning over the last couple of days as well and some pain, but ot herwise no fevers, chills or night sweats. The patient otherwise with no complaints other than some s welling in the legs and some mild discomfort in the right lower extremity. PAST MEDICAL HISTORY: Atonic bladder with chronic renal insufficiency and urinary retention, hyperte nsion, Asperger syndrome, schizophrenia, chronic renal insufficiency, history of cellulitis. PAST SURGICAL HISTORY: Bladder reconstruction. FAMILY HISTORY: Noncontributory. ALLERGIES: NO KNOWN DRUG ALLERGIES. MEDICATIONS: 1. Abilify 5 mg daily. 2. Amlodipine 5 mg daily. 3. Ferrous sulfate 325 mg daily. 4. Sertraline 50 mg daily. 5. Multivitamin 1 daily. 6. Finasteride 5 mg daily. SOCIAL HISTORY: No tobacco, no alcohol use. The patient is a resident of [facility]. PHYSICAL EXAMINATION: VITAL SIGNS: In the emergency room, temperature 98.1, pulse of 108, respirations 18, blood pressure 160/74, oxygen saturation 99% on room air. Currently, temperature is 98.7, pulse of 83, respirations 18, blood pressure 107/68, oxygen saturation 100% on room air. GENERAL: Well-developed, well-nourished male in no acute distress, sitting up in bed. HEENT: EOMI, PERRLA. Oropharynx clear without exudate. NECK: No jugular venous distention, 2+ carotid upstroke without bruits. No lymphadenopathy, no thyr omegaly. LUNGS: Clear to auscultation bilaterally. HEART: Regular rate and rhythm. ABDOMEN: Soft, mild obesity, normoactive bowel sounds, nontender, nondistended, no hepatosplenomegal y noted. GENITOURINARY: Normal male. No masses. There is a catheter in place. EXTREMITIES: 1+ bilateral lower extremity edema with stasis changes. There is erythema and warmth a nd mild tenderness to palpation in the left anterior and posterior calf. Pulses are 2+ distally. NEUROLOGIC: Otherwise nonfocal. LABORATORY EXAMINATION: White blood cell count initially 11.2, hemoglobin 11.4, hematocrit 34.1, myra telets of 326. Repeat white blood cell count 11.9, hemoglobin 10.8, hematocrit 32.2, initial sodium 136, potassium 5.6, chloride 106, bicarbonate 21, BUN of 68, creatinine 3.27, blood sugar 117, calciu m 8.9, repeat sodium 138, potassium 4.6, BUN of 61, creatinine 2.72, albumin 3.0. Urinalysis is bloo dy, nitrate positivity, 3+ hemoglobin, 1+ glucose, 2+ protein, no red blood cells seen. IMAGING: Renal ultrasound, urinary bladder significantly distended, concerning for urinary retention and bladder outflow obstruction. There is nonspecific, moderate bilateral hydroureteronephrosis. ASSESSMENT AND PLAN: The patient is a 72-year-old male with known atonic bladder, chronic renal insufficiency, hypertension, chronic anemia, who was admitted for gross hematuria and found to have worsening renal insufficiency as well as urinary retention. 1. Hematuria/urinary retention. The patient had catheter placed by Dr. Martinez and appreciate Dr. Kacey cowan's consultation. Patient is getting continuous irrigation and his urine is clearing. We will continue the patient on antibiotics and sent off urine culture. Continue with catheterization and pa tient will need to be discharged home either on a catheter or straight catheterization on a daily bas is. We will continue to follow the patient's renal function. 2. Cellulitis. The patient with a history of cellulitis in the past and we will do leg elevation an d give ceftriaxone IV on a daily basis. 3. Hypertension. We will continue the patient's amlodipine as well as use Hydralazine on a p.r.n. b asis. 4. Anemia. The patient with chronic anemia and will continue to follow and continue patient's iron as well. 5. Schizophrenia/Asperger's. We will continue the patient's Abilify and Sertraline. 6. Hyperkalemia, resolved after D50 and insulin and hydration. We will continue to monitor. Dictated By: TONI TAYLOR MD SR/NTS Conf#: [id number] DID#: [id number] CC: MAXWELL MARTINEZ MD;*End*
--- NOTE | 2018-10-21 11:12 | CONS ---
Consult Date/Type/Reason Admit Date/Time Oct 20, 2018 at 19:45 Initial Consult Date 10/20/18 Type of Consultation: Urology Reason for Consultation Gross hematuria and urinary retention Requesting Provider: TONI TAYLOR MD- Date/Time of Note DATE: 10/21/18 TIME: 11:09 Subjective Patient is feeling better, he denies any pain. Objective Vitals Vital Signs Date Temp Pulse Resp B/P (MAP) Pulse Ox O2 O2 Flow FiO2 Time Delivery Rate 10/21/18 98.5 83 18 107/60 100 07:49 (76) 10/20/18 Room Air 20:30 10/20/18 21 18:12 Intake and Output 10/20/18 10/20/18 10/21/18 1515:00 23:00 07:00 IntakeIntake Total 50396 ml OutputOutput Total 2400 ml BalanceBalance 54775 ml Exam The urine is clear with the bladder irrigation. There are no clots. Results/Medications Result Diagram: 10/21/18 0534 10/21/18 0534 Results 24 hrs Laboratory Tests Test 10/20/18 16:04 10/20/18 17:35 10/21/18 05:34 White Blood Count 11.2 #H 11.9 H Red Blood Count 3.72 L 3.49 L Hemoglobin 11.4 L 10.8 L Hematocrit 34.1 L 32.2 L Mean Corpuscular Volume 91.7 92.3 Mean Corpuscular Hemoglobin 30.6 30.9 Mean Corpuscular Hemoglobin Concent 33.4 33.5 Red Cell Distribution Width 12.5 12.6 Platelet Count 326 # 303 Mean Platelet Volume 8.3 8.7 Immature Granulocytes % 0.400 0.300 Neutrophils % 71.3 75.4 Lymphocytes % 20.1 16.4 Monocytes % 7.0 7.1 Eosinophils % 0.8 0.5 Basophils % 0.4 0.3 Nucleated Red Blood Cells % 0.0 0.0 Immature Granulocytes # 0.040 H 0.040 H Neutrophils # 8.0 H 9.0 H Lymphocytes # 2.3 2.0 Monocytes # 0.8 0.9 Eosinophils # 0.1 0.1 Basophils # 0.1 0.0 Nucleated Red Blood Cells # 0.0 0.0 Urine Color RED Urine Clarity BLOODY A Urine pH 7.0 Urine Specific [place] 1.016 Urine Ketones TRACE A Urine Nitrite POSITIVE A Urine Bilirubin NEGATIVE Urine Urobilinogen NEGATIVE Urine Leukocyte Esterase NEGATIVE Urine Microscopic RBC 0 Urine Microscopic WBC 0 Urine Bacteria MANY Urine Hemoglobin 3+ H Urine Glucose 1+ H Urine Total Protein 2+ H Sodium Level 137 138 Potassium Level 5.6 H 4.6 Chloride Level 106 107 Carbon Dioxide Level 21 23 Anion Gap 10 8 Blood Urea Nitrogen 68 H 61 H Creatinine 3.27 H 2.72 H Est Glomerular Filtrat Rate mL/min Glucose Level 117 121 Calcium Level 8.9 8.5 Bedside Glucose 115 Total Bilirubin 0.2 Direct Bilirubin 0.00 Indirect Bilirubin 0.2 Aspartate Amino Transf (AST/SGOT) 22 Alanine Aminotransferase (ALT/SGPT) 14 Alkaline Phosphatase 88 Total Protein 6.7 Albumin 3.0 L Globulin 3.70 H Albumin/Globulin Ratio 0.81 Home Meds Reported Medications Multivitamins* (Theragran*) 1 Tab Tab, 1 TAB PO DAILY, TAB 10/20/18 Ferrous Sulfate* (Ferrous Sulfate*) 325 Mg Tabec, 325 MG PO DAILY, TAB 10/20/18 Sertraline Hcl* (Sertraline Hcl*) 50 Mg Tablet, 50 MG PO DAILY, #30 TAB 10/20/18 Finasteride* (Finasteride*) 5 Mg Tablet, 5 MG PO DAILY, TAB 10/20/18 Aripiprazole* (Abilify*) 5 Mg Tab, 5 MG PO DAILY, #30 TAB 10/20/18 Amlodipine Besylate* (Norvasc*) 5 Mg Tablet, 5 MG PO DAILY, TAB 10/20/18 Discontinued Reported Medications Amlodipine Besylate* (Norvasc*) 5 Mg Tablet, 5 MG PO DAILY, TAB 12/01/15 Bethanechol Chloride* (Bethanechol Chloride*) 25 Mg Tablet, 25 MG PO TID, TAB 11/20/15 Finasteride* (Finasteride*) 5 Mg Tablet, 5 MG PO QHS, TAB 11/20/15 Sertraline Hcl* (Sertraline Hcl*) 50 Mg Tablet, 50 MG PO DAILY, #30 TAB 11/20/15 Aripiprazole* (Abilify*) 5 Mg Tab, 5 MG PO DAILY, #30 TAB 11/20/15 Medications Current Medications Amlodipine Besylate (Norvasc) 5 mg DAILY PO Last administered on 10/21/18at 09:55; Admin Dose 5 MG; Start 10/21/18 at 09:00 Aripiprazole (Abilify) 5 mg DAILY PO Last administered on 10/21/18at 09:55; Admin Dose 5 MG; Start 10/21/18 at 09:00 Finasteride (Proscar) 5 mg DAILY PO Last administered on 10/21/18at 09:55; Admin Dose 5 MG; Start 10/21/18 at 09:00 Sertraline HCl (Zoloft) 50 mg DAILY PO Last administered on 10/21/18at 09:55; Admin Dose 50 MG; Start 10/21/18 at 09:00 Ibuprofen (Motrin) 400 mg Q6H PRN PO MILD PAIN(1-3) OR TEMP>38C; Start 10/20/18 at 23:00 Ondansetron HCl (Zofran Inj) 4 mg Q6H PRN IV NAUSEA AND/OR VOMITING; Start 10/20/18 at 23:00 Sodium Chloride 1,000 ml @ 60 mls/hr [id number] IV ; Start 10/21/18 at 10:00 Ceftriaxone Sodium 50 ml @ 100 mls/hr Q24H IVPB ; Start 10/22/18 at 10:00 Ceftriaxone Sodium 50 ml @ 100 mls/hr ONCE IVPB ; Start 10/21/18 at 10:30; Stop 10/21/18 at 23:59 Hydralazine HCl (Apresoline) 5 mg Q6H PRN IV SBP>180 OR DBP>100; Start 10/21/18 at 10:00 Assessment/Plan Hospital Course (Demo Recall) 72-year-old male to have a history of atonic bladder and urinary retention was b rought to the hospital because of gross hematuria. [id number] and he has a home health nurse who visits him and do straight cath on him once every 2 or 3 days. The patient was admitted before in this hospital with urinary retention and bilateral hydronephrosis and was diagnosed with atonic bladder. The patient does have a history of Asperger syndrome, major depression, hypertension, and chronic kidney disease. I did review his renal ultrasound and indeed his bladder was very distended and had probably clots in it. So went ahead and prepped and draped the genital area and inserted a 24 [place] three-way Nava catheter and drained the bladder comp letely and irrigated the clots out Today the urine is clear with the bladder irrigation. I will stop the irrigation and keep the Nava in place. Urine culture and urine cytology are still pending. Continue the IV antibiotic MAXWELL FLORES MD Oct 21, 2018 11:12
[2018-10-21 13:49] VITALS: BP 104/56; PULSE 85; RESP 18
[2018-10-21] MEDS: CEFTRIAXONE 2 GM/50 ML (PMX) 50 ML IVPB SCH (17:13)
[2018-10-21 20:00] VITALS: BP 106/63; PULSE 88; RESP 17
[2018-10-21] MEDS: SOD CHLORIDE 0.9% 1,000 ML IV SCH (20:22)
[2018-10-22 02:00] VITALS: BP 96/62; PULSE 72; RESP 18
[2018-10-22] MEDS: SOD CHLORIDE 0.9% 1,000 ML IV SCH ×2 (02:40→15:05)
[2018-10-22 07:48] VITALS: BP 105/59; PULSE 89; RESP 16
[2018-10-22] MEDS: FINASTERIDE 5 MG TAB PO SCH (08:38)
[2018-10-22] MEDS: ARIPIPRAZOLE 5 MG TAB PO SCH (08:38)
[2018-10-22] MEDS: SERTRALINE 50 MG TAB PO SCH (08:38)
[2018-10-22] MEDS: AMLODIPINE 5 MG TAB PO SCH (08:39)
--- NOTE | 2018-10-22 10:03 | PN ---
DATE: 10/22/2018 SUBJECTIVE: The patient is feeling a little better, less pain in his leg. OBJECTIVE: VITAL SIGNS: Temperature 97.9, pulse 89, respirations 16, blood pressure 105/59, oxygen saturation 9 7% on room air. GENERAL: Well-developed, well-nourished male in no acute distress, sitting up in bed. LUNGS: Clear to auscultation bilaterally. HEART: Regular rate and rhythm. ABDOMEN: Soft, nontender, nondistended. GENITOURINARY: Nava in place with clear yellow urine draining. EXTREMITIES: Trace to 1+ bilateral lower extremity edema. Right calf with induration, mild erythema and mild tenderness to palpation, but decreased from yesterday. NEUROLOGIC: Nonfocal. LABORATORY DATA: Urine culture is pending at this time. CBC and chemistries are pending at this [facility]. ASSESSMENT AND PLAN: 1. Urinary retention/hematuria. The patient improved with irrigation of the bladder and on antibiot ics as well as has a Nava in place. We will continue with this and prior to discharge, remove the c atheter. We will await culture results and treat if infection is present. 2. Cellulitis, right lower extremity, stable to slightly improved. Will continue with antibiotics, leg elevation. 3. Hypertension, stable. Continue with medications. 4. Schizophrenia, stable. Continue with meds. 5. Anemia. Await lab results, but continue on supplements. Dictated By: TONI TAYLOR MD, SR/NTS Conf#: [id number] DID#: [id number]
[2018-10-22] MEDS: CEFTRIAXONE 2 GM/50 ML (PMX) 50 ML IVPB SCH (10:28)
--- NOTE | 2018-10-22 10:33 | CONS ---
Consult Date/Type/Reason Admit Date/Time Oct 20, 2018 at 19:45 Initial Consult Date 10/20/18 Type of Consultation: Urology Reason for Consultation Gross hematuria, urinary retention and atonic bladder Requesting Provider: TONI TAYLOR MD- Date/Time of Note DATE: 10/22/18 TIME: 10:31 Subjective Patient states he is feeling better. Objective Vitals Vital Signs Date Temp Pulse Resp B/P (MAP) Pulse Ox O2 O2 Flow FiO2 Time Delivery Rate 10/22/18 97.9 89 16 105/59 97 07:48 (74) 10/20/18 Room Air 20:30 10/20/18 21 18:12 Intake and Output 10/21/18 10/21/18 10/22/18 1515:00 23:00 07:00 IntakeIntake Total 350 ml 950 ml 540 ml OutputOutput Total 2300 ml 1150 ml 1500 ml BalanceBalance -1950 ml -200 ml -960 ml Exam The Nava catheter is draining clear urine without the irrigation. Results/Medications Result Diagram: 10/21/18 0534 10/21/18 0534 Home Meds Reported Medications Multivitamins* (Theragran*) 1 Tab Tab, 1 TAB PO DAILY, TAB 10/20/18 Ferrous Sulfate* (Ferrous Sulfate*) 325 Mg Tabec, 325 MG PO DAILY, TAB 10/20/18 Sertraline Hcl* (Sertraline Hcl*) 50 Mg Tablet, 50 MG PO DAILY, #30 TAB 10/20/18 Finasteride* (Finasteride*) 5 Mg Tablet, 5 MG PO DAILY, TAB 10/20/18 Aripiprazole* (Abilify*) 5 Mg Tab, 5 MG PO DAILY, #30 TAB 10/20/18 Amlodipine Besylate* (Norvasc*) 5 Mg Tablet, 5 MG PO DAILY, TAB 10/20/18 Discontinued Reported Medications Amlodipine Besylate* (Norvasc*) 5 Mg Tablet, 5 MG PO DAILY, TAB 12/01/15 Bethanechol Chloride* (Bethanechol Chloride*) 25 Mg Tablet, 25 MG PO TID, TAB 11/20/15 Finasteride* (Finasteride*) 5 Mg Tablet, 5 MG PO QHS, TAB 11/20/15 Sertraline Hcl* (Sertraline Hcl*) 50 Mg Tablet, 50 MG PO DAILY, #30 TAB 11/20/15 Aripiprazole* (Abilify*) 5 Mg Tab, 5 MG PO DAILY, #30 TAB 11/20/15 Medications Current Medications Amlodipine Besylate (Norvasc) 5 mg DAILY PO Last administered on 10/22/18 08:39; Admin Dose 5 MG; Start 10/21/18 at 09:00 Aripiprazole (Abilify) 5 mg DAILY PO Last administered on 10/22/18 08:38; Admin Dose 5 MG; Start 10/21/18 at 09:00 Finasteride (Proscar) 5 mg DAILY PO Last administered on 10/22/18 08:38; Admin Dose 5 MG; Start 10/21/18 at 09:00 Sertraline HCl (Zoloft) 50 mg DAILY PO Last administered on 10/22/18 08:38; Admin Dose 50 MG; Start 10/21/18 at 09:00 Ibuprofen (Motrin) 400 mg Q6H PRN PO MILD PAIN(1-3) OR TEMP>38C; Start 10/20/18 at 23:00 Ondansetron HCl (Zofran Inj) 4 mg Q6H PRN IV NAUSEA AND/OR VOMITING; Start 10/20/18 at 23:00 Sodium Chloride 1,000 ml @ 60 mls/hr [id number] IV Last administered on 10/21/18at 20:22; Admin Dose 60 MLS/HR; Start 10/21/18 at 10:00 Ceftriaxone Sodium 50 ml @ 100 mls/hr Q24H IVPB Last administered on 10/22/18at 10:28; Admin Dose 100 MLS/HR; Start 10/22/18 at 10:00 Hydralazine HCl (Apresoline) 5 mg Q6H PRN IV SBP>180 OR DBP>100; Start 10/21/18 at 10:00 Assessment/Plan Hospital Course (Demo Recall) 72-year-old male to have a history of atonic bladder and urinary retention was brought to the hospital because of gross hematuria. Patient resides in a [id number] and he has a home health nurse who visits him and do straight cath on him once every 2 or 3 days. The patient was admitted before in this hospital with urinary retention and bilateral hydronephrosis and was diagnosed with atonic bladder. The patient does have a history of Asperger s yndrome, major depression, hypertension, and chronic kidney disease. I did review his renal ultrasound and indeed his bladder was very distended and had probably clots in it. So went ahead and prepped and draped the genital area and inserted a 24 [place] three-way Nava catheter and drained the bladder completely and irrigated the clots out The bladder irrigation was stopped yesterday and the urine remained clear yellow. The patient is feeling much better. The urine culture final report is still pending. For now continue the antibiotic. And we will discontinue the Nava catheter prior to his discharge. MAXWELL FLORES MD Oct 22, 2018 10:33
[2018-10-22 14:49] VITALS: BP 102/54; PULSE 86; RESP 18
[2018-10-22 19:57] VITALS: BP 117/65; PULSE 85; RESP 20
[2018-10-23 02:17] VITALS: BP 98/56; PULSE 77; RESP 18
[2018-10-23] MEDS: SOD CHLORIDE 0.9% 1,000 ML IV SCH (05:51)
[2018-10-23 08:18] VITALS: BP 115/61; PULSE 80; RESP 18
[2018-10-23] MEDS: ARIPIPRAZOLE 5 MG TAB PO SCH (08:59)
[2018-10-23] MEDS: FINASTERIDE 5 MG TAB PO SCH (08:59)
[2018-10-23] MEDS: SERTRALINE 50 MG TAB PO SCH (08:59)
[2018-10-23] MEDS: CEFTRIAXONE 2 GM/50 ML (PMX) 50 ML IVPB SCH (09:04)
[2018-10-23] MEDS: AMLODIPINE 5 MG TAB PO SCH (09:05)
[2018-10-23] MEDS ORDERED: MAGNESIUM HYDROXIDE 30ML CUP PO PRN (09:30)
[2018-10-23] MEDS ORDERED: MAGNESIUM HYDROXIDE 30ML CUP PO ONE (09:30)
--- NOTE | 2018-10-23 09:30 | PN ---
DATE: 10/23/2018 SUBJECTIVE: The patient without complaint. The patient has less pain in the right calf. OBJECTIVE: VITAL SIGNS: Temperature 97.5. Blood pressure 115/61, respirations 18, pulse of 80 and regular. Ox ygen saturation 100% on room air. GENERAL: Well-developed, well-nourished male in no acute distress, sitting up in bed. LUNGS: Clear to auscultation bilaterally. HEART: Regular rate and rhythm. ABDOMEN: Soft, nontender. EXTREMITIES: Trace to 1+ bilateral lower extremity edema with stasis changes. There is erythema, in duration and tenderness to palpation of the right calf. NEUROLOGIC: Nonfocal. LABORATORY DATA: Sodium 141, potassium 4.5, chloride 111, bicarbonate 24, BUN of 44, creatinine 2.25 , calcium 8.0, hemoglobin 9.6, hematocrit 29.1. Urine culture is growing greater than 100,000 alpha hemolytic strep, strep viridans. ASSESSMENT AND PLAN 1. Hematuria/urinary retention, improved status post irrigation. Will continue with Nava catheter and discontinue the catheter in the morning. We will continue with IV antibiotics as well. 2. Cellulitis, improved. We will continue with IV antibiotics, leg elevation. 3. Urinary tract infection. Continue with antibiotics. The patient with Strep viridans, which is a n oral pathogen, but in his urine, and we will treat as a presumptive infection. 4. Acute on chronic renal insufficiency, improved with hydration. Will continue. 5. Hypertension, stable. Continue medications and p.r.n. hydralazine. 6. Schizophrenia, stable. Continue with meds. 7. Chronic anemia. Stable. Continue to monitor. 8. Discharge planning. Anticipate discharge home tomorrow if there are no further complications. W e will arrange for home health with every day straight catheterization if covered. If not, every oth er day with home health. Dictated By: TONI TAYLOR MD SR/NTS Conf#: [id number] DID#: [id number] CC: MAXWELL FLORES MD;*EndCC*
[2018-10-23 14:29] VITALS: BP 118/68; PULSE 83; RESP 18
--- NOTE | 2018-10-23 19:16 | CONS ---
Consult Date/Type/Reason Admit Date/Time Oct 20, 2018 at 19:45 Initial Consult Date 10/20/18 Type of Consultation: Urology Reason for Consultation Urinary retention, hematuria and atonic bladder Requesting Provider: TONI TAYLOR MD- Date/Time of Note DATE: 10/23/18 TIME: 19:12 Subjective Patient is feeling better and appears to be comfortable Objective Vitals Vital Signs Date Temp Pulse Resp B/P (MAP) Pulse Ox O2 O2 Flow FiO2 Time Delivery Rate 10/23/18 97.9 83 18 118/68 100 Room Air 14:29 (85) 10/20/18 21 18:12 Intake and Output 10/22/18 10/22/18 10/23/18 1414:59 22:59 06:59 IntakeIntake Total 1370 ml 1080 ml 1600 ml OutputOutput Total 600 ml 800 ml BalanceBalance 1370 ml 480 ml 800 ml Exam The abdomen is soft and the Nava catheter is draining clear urine. Urine culture did show:AEROCOCCUS URINAE Results/Medications Result Diagram: 10/23/18 0509 10/23/18 0509 Results 24 hrs Laboratory Tests Test 10/23/18 05:09 White Blood Count 8.5 Red Blood Count 3.10 L Hemoglobin 9.6 L Hematocrit 29.1 L Mean Corpuscular Volume 93.9 Mean Corpuscular Hemoglobin 31.0 Mean Corpuscular Hemoglobin Concent 33.0 Red Cell Distribution Width 12.7 Platelet Count 285 Mean Platelet Volume 9.2 Immature Granulocytes % 0.500 H Neutrophils % 68.6 Lymphocytes % 20.2 Monocytes % 7.3 Eosinophils % 2.9 Basophils % 0.5 Nucleated Red Blood Cells % 0.0 Immature Granulocytes # 0.040 H Neutrophils # 5.9 Lymphocytes # 1.7 Monocytes # 0.6 Eosinophils # 0.3 Basophils # 0.0 Nucleated Red Blood Cells # 0.0 Sodium Level 141 Potassium Level 4.5 Chloride Level 111 H Carbon Dioxide Level 24 Anion Gap 6 Blood Urea Nitrogen 44 H Creatinine 2.25 H Est Glomerular Filtrat Rate mL/min Glucose Level 89 Calcium Level 8.0 L Home Meds Reported Medications Multivitamins* (Theragran*) 1 Tab Tab, 1 TAB PO DAILY, TAB 10/20/18 Ferrous Sulfate* (Ferrous Sulfate*) 325 Mg Tabec, 325 MG PO DAILY, TAB 10/20/18 Sertraline Hcl* (Sertraline Hcl*) 50 Mg Tablet, 50 MG PO DAILY, #30 TAB 10/20/18 Finasteride* (Finasteride*) 5 Mg Tablet, 5 MG PO DAILY, TAB 10/20/18 Aripiprazole* (Abilify*) 5 Mg Tab, 5 MG PO DAILY, #30 TAB 10/20/18 Amlodipine Besylate* (Norvasc*) 5 Mg Tablet, 5 MG PO DAILY, TAB 10/20/18 Discontinued Reported Medications Amlodipine Besylate* (Norvasc*) 5 Mg Tablet, 5 MG PO DAILY, TAB 12/01/15 Bethanechol Chloride* (Bethanechol Chloride*) 25 Mg Tablet, 25 MG PO TID, TAB 11/20/15 Finasteride* (Finasteride*) 5 Mg Tablet, 5 MG PO QHS, TAB 11/20/15 Sertraline Hcl* (Sertraline Hcl*) 50 Mg Tablet, 50 MG PO DAILY, #30 TAB 11/20/15 Aripiprazole* (Abilify*) 5 Mg Tab, 5 MG PO DAILY, #30 TAB 11/20/15 Medications Current Medications Amlodipine Besylate (Norvasc) 5 mg DAILY PO Last administered on 10/23/18at 09:05; Admin Dose 5 MG; Start 10/21/18 at 09:00 Aripiprazole (Abilify) 5 mg DAILY PO Last administered on 10/23/18at 08:59; Admin Dose 5 MG; Start 10/21/18 at 09:00 Finasteride (Proscar) 5 mg DAILY PO Last administered on 10/23/18at 08:59; Admin Dose 5 MG; Start 10/21/18 at 09:00 Sertraline HCl (Zoloft) 50 mg DAILY PO Last administered on 10/23/18at 08:59; Admin Dose 50 MG; Start 10/21/18 at 09:00 Ibuprofen (Motrin) 400 mg Q6H PRN PO MILD PAIN(1-3) OR TEMP>38C; Start 10/20/18 at 23:00 Ondansetron HCl (Zofran Inj) 4 mg Q6H PRN IV NAUSEA AND/OR VOMITING; Start 10/20/18 at 23:00 Sodium Chloride 1,000 ml @ 60 mls/hr [id number] IV Last administered on 10/23/18at 05:51; Admin Dose 60 MLS/HR; Start 10/21/18 at 10:00 Ceftriaxone Sodium 50 ml @ 100 mls/hr Q24H IVPB Last administered on 10/23/18at 09:04; Admin Dose 100 MLS/HR; Start 10/22/18 at 10:00 Hydralazine HCl (Apresoline) 5 mg Q6H PRN IV SBP>180 OR DBP>100; Start 10/21/18 at 10:00 Magnesium Hydroxide (Milk Of Mag) 30 ml BID PRN PO CONSTIPATION; Start 10/23/18 at 09:30 Assessment/Plan Hospital Course (Demo Recall) 72-year-old male to have a history of atonic bladder and urinary retention was brought to the hospital because of gross hematuria. Patient resides in a [id number] and he has a home health nurse who visits him and do straight cath on him once every 2 or 3 days. The patient was admitted before in this hospital with urinary retention and bilateral hydronephrosis and was diagnosed with atonic bladder. The patient does have a history of Asperger syndrome, major depression, hypertension, and chronic kidney disease. I did review his renal ultrasound and indeed his bladder was very distended and had probably clots in it. So went ahead and prepped and draped the genital area and inserted a 24 [place] three-way Nava catheter and drained the bladder completely and irrigated the clots out The bladder irrigation was stopped and the urine remained clear yellow. The patient is feeling much better. The urine culture did show: AEROCOCCUS URINAE . For now continue the antibiotic. And discontinue the Nava catheter prior to his discharge. MAXWELL FLORES MD Oct 23, 2018 19:16
[2018-10-23 20:33] VITALS: BP 106/56; PULSE 90; RESP 18
[2018-10-24] MEDS: SOD CHLORIDE 0.9% 1,000 ML IV SCH (00:52)
[2018-10-24 03:09] VITALS: BP 109/63; PULSE 76; RESP 18
--- NOTE | 2018-10-24 07:48 | PDOCDIS ---
Discharge Instructions DIAGNOSIS Discharge Diagnosis urinary retention with UTI; acute on chronic renal failure; cellulitis right lower extremity CONDITION [id number] Patient Condition: [id number] Good HOME CARE INSTRUCTIONS: [id number] Diet Instructions: [id number] FOLLOW UP/APPOINTMENTS Follow-up Plan follow up as scheduled with Dr. Prado; Home Health with [facility] TONI PRADO MD- Oct 24, 2018 07:48
[2018-10-24] MEDS ORDERED: AMOX1TAB10 PO (07:49)
[2018-10-24 08:25] VITALS: BP 117/60; PULSE 75; RESP 17
--- NOTE | 2018-10-24 08:38 | PN ---
DATE: 10/24/2018 SUBJECTIVE: The patient is feeling well without complaints. He had a bowel movement yesterday. OBJECTIVE: VITAL SIGNS: Temperature 98.6, pulse 76, respirations 18, blood pressure 109/63, oxygen saturation 9 8% on room air. GENERAL: A well-developed and well-nourished male in no acute distress, sitting up in bed. CHEST: Clear to auscultation bilaterally. HEART: Regular rate and rhythm. ABDOMEN: Soft and nontender. EXTREMITIES: Trace edema, decreased erythema, no tenderness. LABORATORY DATA: Sodium 140, potassium 4.6, chloride 110, bicarbonate 25, BUN of 42, creatinine 2.25 , calcium 8.1, hemoglobin 9.4, hematocrit 28.7. Urine culture shows greater than 100,000 Aerococcus urinae. ASSESSMENT AND PLAN: 1. Hematuria/urinary retention with urinary tract infection. The patient improved after lavage and antibiotics. We will continue with antibiotics and change to oral Augmentin. We will continue with straight catheterization on a daily basis after discharge with home health. 2. Cellulitis, right lower extremity, improved. We will continue with antibiotics and change to ora l Augmentin for the next 10 days. 3. Hypertension, stable. Continue with meds and diet. 4. Schizophrenia, stable. Continue with meds. 5. Chronic anemia. Continue with iron and will follow as an outpatient. 6. Acute on chronic renal insufficiency, improved after Nava catheter and hydration. We will brandi nue to monitor as the patient is at his baseline. 7. Discharge planning. The patient is stable for discharge to home. We will continue on home healt h with daily straight catheterization. The patient will follow up with me as scheduled. Dictated By: TONI TAYLOR MD SR/NTS Conf#: [id number] DID#: [id number] CC: MAXWELL FLORES MD;*EndCC*
[2018-10-24] MEDS: SERTRALINE 50 MG TAB PO SCH (08:51)
[2018-10-24] MEDS: CEFTRIAXONE 2 GM/50 ML (PMX) 50 ML IVPB SCH (08:51)
[2018-10-24] MEDS: AMLODIPINE 5 MG TAB PO SCH (08:53)
[2018-10-24] MEDS: FINASTERIDE 5 MG TAB PO SCH (08:53)
[2018-10-24] MEDS: ARIPIPRAZOLE 5 MG TAB PO SCH (08:53)
== END 2018-10-24 12:15 | disposition home health service (06) | DRG 699 ==
LOC: E/R 15:19 → PP2 19:45
PROVIDERS: ADMIT Internal Medicine; ATTEND Internal Medicine
PROC: 0T9B30Z Drainage of Bladder with Drainage Device, Percutaneous Approach (ICD-10-PCS; principal; 2018-10-20)
DX: N31.2 Flaccid neuropathic bladder, not elsewhere classified (principal); F84.0 Autistic disorder; I12.0 Hypertensive chronic kidney disease with stage 5 chronic kidney disease or end stage renal disease; L03.115 Cellulitis of right lower limb; F84.5 Asperger's syndrome; N39.0 Urinary tract infection, site not specified; R33.9 Retention of urine, unspecified; R31.0 Gross hematuria; B96.89 Other specified bacterial agents as the cause of diseases classified elsewhere; E87.5 Hyperkalemia; F20.9 Schizophrenia, unspecified; D64.9 Anemia, unspecified; N18.9 Chronic kidney disease, unspecified; F32.9 Major depressive disorder, single episode, unspecified; F41.9 Anxiety disorder, unspecified; E66.9 Obesity, unspecified; Z68.23 Body mass index [BMI] 23.0-23.9, adult
CPT/HCPCS: 76775; 80048; 80053; 81001; 82962; 85025; 87081; 87086; 88104; 93005; 94664; 96374; 96375; J0696; J1815; J7030

== ENCOUNTER 2018-11-24 18:10 | Emergency (ER) | payer MEDICARE, OTHER ==
[~2018-11-24] VITALS: Ht 182.9 cm; Wt 83.2 kg
[~2018-11-24 18:10] MED LIST changes: +AMOX1TAB10 PO; -BETH25TA PO; +FER325 PO; +MULTI PO
[2018-11-24 18:24] VITALS: Ht 182.9 cm; Wt 83.2 kg
--- NOTE | 2018-11-24 19:06 | ERD ---
ER Documentation Chief Complaint Chief Complaint weeping/peeling blisters on lower legs (R>L)x 2days;hx MRSA last time HPI This is a 73-year-old man complaining of bilateral lower extremity edema and "blistering" to the lower left leg. Patient states he has been using his Lasix as prescribed, no difficulty ambulating, no fevers or chills, no complaints of chest pain or shortness of breath ROS All systems reviewed and are negative except as per history of present illness. Medications Home Meds Reported Medications Multivitamins* (Theragran*) 1 Tab Tab, 1 TAB PO DAILY, TAB 10/20/18 Ferrous Sulfate* (Ferrous Sulfate*) 325 Mg Tabec, 325 MG PO DAILY, TAB 10/20/18 Sertraline Hcl* (Sertraline Hcl*) 50 Mg Tablet, 50 MG PO DAILY, #30 TAB 10/20/18 Finasteride* (Finasteride*) 5 Mg Tablet, 5 MG PO DAILY, TAB 10/20/18 Aripiprazole* (Abilify*) 5 Mg Tab, 5 MG PO DAILY, #30 TAB 10/20/18 Amlodipine Besylate* (Norvasc*) 5 Mg Tablet, 5 MG PO DAILY, TAB 10/20/18 Discontinued Scripts Amoxicillin/Potassium Clav (Amox-Clav 875-125 mg Tablet) 875-125 mg Tab, 1 TAB PO BID, #20 TAB Prov:TONI TAYLOR MD- 10/24/18 Allergies Allergies: Coded Allergies: No Known Allergy (Unverified , 11/24/18) PMhx/Soc Hypertension, chronic peripheral edema, acute on chronic renal insufficiency, schizophrenia, chronic anemia History of Surgery: Yes (tonsilectomy& chin bone sx(childhood) prostate resection 2013) Anesthesia Reaction: No Hx Neurological Disorder: No Hx Respiratory Disorders: No Hx Cardiac Disorders: Yes (hypotension) Hx Psychiatric Problems: Yes (schizoprenia, depression, anxiety) Hx Miscellaneous Medical Probl: Yes (measles, hx of fall 3 yrs ago) Hx Alcohol Use: No Hx Substance Use: No Hx Tobacco Use: No Smoking Status: Unknown if ever smoked FmHx Family History: No diabetes Physical Exam Vitals Vital Signs Date Temp Pulse Resp B/P (MAP) Pulse Ox O2 O2 Flow FiO2 Time Delivery Rate 11/24/18 64 16 135/67 100 Room Air 19:46 (89) 11/24/18 99.1 78 20 155/76 98 Room Air 18:38 (102) 11/24/18 99.1 76 20 124/62 98 18:24 (82) Physical Exam GENERAL: Well-developed, well-nourished, well-hydrated, in no apparent distress, looks nontoxic in appearance HEENT: Moist mucous membranes, pink conjunctiva, no cervical spine tenderness or step-off deformities, no goiter, no jaundice or icterus, extraocular movements intact without pain. NEURO: Alert and oriented 3, cranial nerves II through XII intact bilaterally, pupils equal round reactive to light, CARDIAC: Regular rate and rhythm, no murmurs rubs or gallops LUNGS: Clear bilaterally no wheezing crackles or stridor SKIN: Warm and dry to touch, moderate chronic skin erythema and xerosis cutis to the lower extremities bilaterally consistent with chronic stasis dermatitis, no vesicles, ulcers, pustules EXTREMITIES: No clubbing cyanosis, 1+ pitting edema to the lower extremities bilaterally, calves are bilaterally symmetrical, no Homans sign, no popliteal cord sign. Distal pulses equal and bilateral PSYCH: Normal affect without agitation or irritability Result Diagram: 11/24/18190511/24/181907 Results 24 hrs Laboratory Tests Test 11/24/18 19:06 11/24/18 19:08 White Blood Count 7.2 10^3/ul Red Blood Count 3.14 10^6/ul Hemoglobin 9.8 g/dl Hematocrit 30.9 % Mean Corpuscular Volume 98.4 fl Mean Corpuscular Hemoglobin 31.2 pg Mean Corpuscular Hemoglobin Concent 31.7 g/dl Red Cell Distribution Width 12.5 % Platelet Count 247 10^3/UL Mean Platelet Volume 9.4 fl Immature Granulocytes % 0.300 % Neutrophils % 59.9 % Lymphocytes % 28.8 % Monocytes % 7.5 % Eosinophils % 2.9 % Basophils % 0.6 % Nucleated Red Blood Cells % 0.0 /100WBC Immature Granulocytes # 0.020 10^3/ul Neutrophils # 4.3 10^3/ul Lymphocytes # 2.1 10^3/ul Monocytes # 0.5 10^3/ul Eosinophils # 0.2 10^3/ul Basophils # 0.0 10^3/ul Nucleated Red Blood Cells # 0.0 10^3/ul Sodium Level 138 mmol/L Potassium Level 4.7 mmol/L Chloride Level 107 mmol/L Carbon Dioxide Level 25 mmol/L Anion Gap 6 Blood Urea Nitrogen 41 mg/dl Creatinine 2.76 mg/dl Est Glomerular Filtrat Rate mL/min mL/min Glucose Level 98 mg/dl Calcium Level 8.5 mg/dl C-Reactive Protein 0.7 mg/dl Current Medications Medications Dose Sig/Bowen Start Time Status Last (Trade) Ordered Route PRN Stop Time Admin Dose Reason Admin Silver 1 applic ONCE ONCE 11/24/18 DC 11/24/18 Sulfadiazine TOP 19:30 11/24/18 19:14 (Thermazene 19:31 1% 25 Gm) Procedures/MDM CBC and electrolytes were unremarkable, CRP was low. Tissue barrier cream was applied to the lower extremities bilaterally Patient feels much better at this time, and vital signs are normal, symptoms have improved. I did give strict instructions to return to the ED if symptoms continue or worsen, patient will otherwise follow-up with primary care physi vivienne. Patient understood instructions and agreed to plan. Disclaimer: Inadvertent spelling and grammatical errors are likely due to EHR/dictation software use and do not reflect on the overall quality of patient care. Also, please note that the electronic time recorded on this note does not necessarily reflect the actual time of the patient encounter. Departure Diagnosis: Primary Impression: Stasis dermatitis Laterality: bilateral Qualified Codes: I87.2 - Venous insufficiency (chronic) (peripheral) Additional Impression: Peripheral edema Condition: Good FROILAN BURGOS MD Nov 24, 2018 19:06
[2018-11-24] MEDS ORDERED: SILVER SULFADIAZINE 1% 25 GM CR TOP ONE (19:30)
[2018-11-24 19:46] VITALS: BP 135/67; PULSE 64; RESP 16
== END 2018-11-24 19:52 | disposition home or self-care (01) ==
LOC: E/R 18:10
DX: I87.2 Venous insufficiency (chronic) (peripheral) (principal); I10 Essential (primary) hypertension
CPT/HCPCS: 80048; 85025; 86140; 99283